=== PATIENT | female | born 1950 | race Caucasian/White ===

== ENCOUNTER 2016-12-11 17:37 | Emergency (ER) | payer MEDICARE ==
[2012-10-24 10:48] VITALS: BMI 25.4
[2016-12-11 18:48] LABS: BASOPHILS 0.3 % (0-2); EOSINOPHILS 1.3 % (0-7); HEMATOCRIT 48.1 % (36.0-48.0); HEMOGLOBIN 15.9 g/dL (12-16); IMMATURE GRANULOCYTES 0.3 % (0-5); LYMPHOCYTES 27.8 % (15-50); MCH 32.4 pg (26.0-34.0); MCHC 33.1 g/dL (31.0-37.0); MCV 98.2 fL (80.0-100.0); MEAN PLATELET VOLUME 10.4 fL (7.4-10.4); NEUTROPHILS 64.3 % (40-80); PLATELET COUNT 189 10x3/uL (130-400); RDW 13.5 % (11.5-14.5); WBC 7.1 10x3/uL (4.8-10.8)
[2016-12-11 19:05] LABS: ALBUMIN 3.9 g/dL (3.4-5.0); ANION GAP 12.2 mmol/L (8-16); BILIRUBIN - TOTAL 0.48 mg/dL (0.2-1.3); CALCIUM 9.3 mg/dL (8.5-10.1); CARBON DIOXIDE 31.2 mmol/L (21.0-32.0); CREATININE - SERUM 1.1 mg/dL (0.6-1.3); POTASSIUM - SERUM 4.4 mmol/L (3.5-5.1); PROTEIN - SERUM 7.5 g/dL (6.4-8.2)
[2016-12-11 19:16] LABS: APPEARANCE CLEAR (CLEAR); BILIRUBIN NEGATIVE (NEGATIVE); COLOR DK YELLOW (YELLOW); GLUCOSE NEGATIVE (NEGATIVE); KETONE NEGATIVE (NEGATIVE); LEUKOCYTE ESTERASE NEGATIVE (NEGATIVE); NITRITE NEGATIVE (NEGATIVE); PROTEIN NEGATIVE (NEGATIVE); SPECIFIC GRAVITY 1.005 (1.005-1.020); UROBILINOGEN NORMAL (NORMAL)
== END 2016-12-11 20:30 | disposition home or self-care (01) ==
LOC: D.ER 17:37
PROVIDERS: Emergency Medicine
DX: K29.00 Acute gastritis without bleeding (principal); K21.9 Gastro-esophageal reflux disease without esophagitis; K59.00 Constipation, unspecified; R63.0 Anorexia; R51 Headache; R11.2 Nausea with vomiting, unspecified

== ENCOUNTER → 2017-02-01 12:57 | Outpatient (CLI) | payer MEDICARE ==
[2012-10-24 10:48] VITALS: BMI 25.4
== END | disposition home or self-care (01) ==
LOC: D.CT 12:57 → D.MRI 13:30
DX: R10.9 Unspecified abdominal pain (principal)

== ENCOUNTER 2017-02-23 19:30 | Emergency (ER) | payer MEDICARE ==
[2012-10-24 10:48] VITALS: BMI 25.4
[2017-02-23 20:38] LABS: APPEARANCE CLEAR (CLEAR); BILIRUBIN NEGATIVE (NEGATIVE); COLOR STRAW (YELLOW); GLUCOSE NEGATIVE (NEGATIVE); KETONE NEGATIVE (NEGATIVE); NITRITE NEGATIVE (NEGATIVE); PROTEIN NEGATIVE (NEGATIVE); UROBILINOGEN NORMAL (NORMAL)
[2017-02-23 20:41] LABS: BACTERIA FEW /hpf (NONE SEEN)
[2017-02-23 20:43] LABS: UDS - AMPHET NEGATIVE QUAL (NEGATIVE); UDS - BARB NEGATIVE QUAL (NEGATIVE); UDS - BENZO POSITIVE QUAL (NEGATIVE); UDS - COCAINE NEGATIVE QUAL (NEGATIVE); UDS - OPIATE NEGATIVE QUAL (NEGATIVE); UDS - PCP NEGATIVE QUAL (NEGATIVE); UDS - THC NEGATIVE QUAL (NEGATIVE)
[2017-02-23 20:45] LABS: BASOPHILS 0.3 % (0-2); EOSINOPHILS 1.6 % (0-7); HEMATOCRIT 45.4 % (36.0-48.0); HEMOGLOBIN 15.2 g/dL (12-16); IMMATURE GRANULOCYTES 0.1 % (0-5); MCH 32.3 pg (26.0-34.0); MCHC 33.5 g/dL (31.0-37.0); MCV 96.6 fL (80.0-100.0); MEAN PLATELET VOLUME 10.2 fL (7.4-10.4); MONOCYTES 7.3 % (2-11); NEUTROPHILS 69.7 % (40-80); PLATELET COUNT 201 10x3/uL (130-400); WBC 7.6 10x3/uL (4.8-10.8)
[2017-02-23 21:17] LABS: ALBUMIN 4.3 g/dL (3.4-5.0); ANION GAP 12.5 mmol/L (8-16); BILIRUBIN - TOTAL 0.5 mg/dL (0.2-1.3); CALCIUM 9.6 mg/dL (8.5-10.1); CARBON DIOXIDE 28.4 mmol/L (21.0-32.0); POTASSIUM - SERUM 3.9 mmol/L (3.5-5.1); PROTEIN - SERUM 7.6 g/dL (6.4-8.2)
== END 2017-02-23 22:15 | disposition home or self-care (01) ==
LOC: D.ER 19:30
PROVIDERS: Physician Assistant
DX: R42 Dizziness and giddiness (principal); H93.13 Tinnitus, bilateral; Z86.59 Personal history of other mental and behavioral disorders; F17.200 Nicotine dependence, unspecified, uncomplicated

== ENCOUNTER 2017-02-25 11:58 | Emergency (ER) | payer MEDICARE ==
[2012-10-24 10:48] VITALS: BMI 25.4
== END 2017-02-25 12:46 | disposition home or self-care (01) ==
LOC: D.ER 11:58
DX: F41.9 Anxiety disorder, unspecified (principal); G47.00 Insomnia, unspecified; Z86.59 Personal history of other mental and behavioral disorders; Z91.14 Patient's other noncompliance with medication regimen; K21.9 Gastro-esophageal reflux disease without esophagitis

== ENCOUNTER 2017-05-29 18:14 | Emergency (ER) | payer MEDICARE ==
[2012-10-24 10:48] VITALS: BMI 25.4
[2017-05-29 19:14] LABS: BASOPHILS 0.4 % (0-2); EOSINOPHILS 0.6 % (0-7); HEMATOCRIT 45.7 % (36.0-48.0); HEMOGLOBIN 15.3 g/dL (12-16); IMMATURE GRANULOCYTES 0.1 % (0-5); LYMPHOCYTES 35.9 % (15-50); MCH 32.8 pg (26.0-34.0); MCHC 33.5 g/dL (31.0-37.0); MCV 98.1 fL (80.0-100.0); MEAN PLATELET VOLUME 9.9 fL (7.4-10.4); MONOCYTES 7.6 % (2-11); NEUTROPHILS 55.4 % (40-80); PLATELET COUNT 218 10x3/uL (130-400); RBC 4.66 10x6/uL (4.00-5.40); RDW 12.9 % (11.5-14.5); WBC 6.8 10x3/uL (4.8-10.8)
[2017-05-29 19:36] LABS: ALBUMIN 3.9 g/dL (3.4-5.0); ANION GAP 14.9 mmol/L (8-16); BILIRUBIN - TOTAL 0.29 mg/dL (0.2-1.3); CALCIUM 9.4 mg/dL (8.5-10.1); CARBON DIOXIDE 27.6 mmol/L (21.0-32.0); CREATININE - SERUM 1.1 mg/dL (0.6-1.3); POTASSIUM - SERUM 3.5 mmol/L (3.5-5.1); PROTEIN - SERUM 7.2 g/dL (6.4-8.2)
[2017-05-29 20:42] LABS: APPEARANCE CLEAR (CLEAR); BILIRUBIN NEGATIVE (NEGATIVE); COLOR YELLOW (YELLOW); GLUCOSE NEGATIVE (NEGATIVE); KETONE NEGATIVE (NEGATIVE); NITRITE NEGATIVE (NEGATIVE); PROTEIN NEGATIVE (NEGATIVE); UROBILINOGEN NORMAL (NORMAL)
== END 2017-05-29 22:10 | disposition home or self-care (01) ==
LOC: D.ER 18:14
PROVIDERS: Family Medicine
DX: K21.9 Gastro-esophageal reflux disease without esophagitis (principal); R11.10 Vomiting, unspecified

== ENCOUNTER 2017-07-16 09:43 | Emergency (ER) | payer OTHER, MEDICAID ==
[2012-10-24 10:48] VITALS: BMI 25.4
== END 2017-07-16 12:22 | disposition home or self-care (01) ==
LOC: D.ER 09:43
DX: J20.9 Acute bronchitis, unspecified (principal); J06.9 Acute upper respiratory infection, unspecified; K21.9 Gastro-esophageal reflux disease without esophagitis

== ENCOUNTER → 2017-08-28 17:15 | Outpatient (CLI) | payer OTHER, MEDICAID ==
[2012-10-24 10:48] VITALS: BMI 25.4
== END | disposition home or self-care (01) ==
LOC: D.MAMMO 11:30
DX: Z12.31 Encounter for screening mammogram for malignant neoplasm of breast (principal)

== ENCOUNTER → 2017-09-28 16:49 | Outpatient (CLI) | payer OTHER, MEDICAID ==
[2012-10-24 10:48] VITALS: BMI 25.4
== END | disposition home or self-care (01) ==
LOC: D.MAMMO 09-27 10:30 → D.US 09-27 11:30 → D.MAMMO 10:30
DX: R92.8 Other abnormal and inconclusive findings on diagnostic imaging of breast (principal)

== ENCOUNTER 2017-11-09 15:16 | Emergency (ER) | payer OTHER, MEDICAID ==
[~2017-11-09] VITALS: Ht 163.8 cm; Wt 71.8 kg
[2017-11-09 15:21] VITALS: Ht 163.8 cm; Wt 71.8 kg
[2017-11-09] MEDS ORDERED: XANAX2 MG PO (15:23)
[2017-11-09] MEDS ORDERED: HALCION0.25 MG PO (15:23)
[2017-11-09] MEDS ORDERED: LEXAPRO10 MG PO (15:23)
[2017-11-09] MEDS ORDERED: REMERON30 MG PO (15:24)
[2017-11-09] MEDS ORDERED: LEVOXYL75 MCG PO (15:24)
[2017-11-09 15:49] LABS: APPEARANCE CLEAR (CLEAR); COLOR STRAW (YELLOW)
[2017-11-09 15:50] LABS: BILIRUBIN NEGATIVE (NEGATIVE); GLUCOSE NEGATIVE (NEGATIVE); KETONE NEGATIVE (NEGATIVE); NITRITE NEGATIVE (NEGATIVE); PROTEIN NEGATIVE (NEGATIVE); UROBILINOGEN NORMAL (NORMAL)
[2017-11-09 15:51] LABS: BACTERIA FEW /hpf (NONE SEEN); EPITHELIAL CELLS 0-5 /hpf (0-5); WHITE CELLS - URINE 0-5 /hpf (0-5)
[2017-11-09 16:00] LABS: UDS - AMPHET NEGATIVE QUAL (NEGATIVE); UDS - BARB NEGATIVE QUAL (NEGATIVE); UDS - BENZO POSITIVE QUAL (NEGATIVE); UDS - COCAINE NEGATIVE QUAL (NEGATIVE); UDS - OPIATE NEGATIVE QUAL (NEGATIVE); UDS - PCP NEGATIVE QUAL (NEGATIVE); UDS - THC NEGATIVE QUAL (NEGATIVE)
[2017-11-09 16:29] LABS: BASOPHILS 0.4 % (0-2); EOSINOPHILS 1.7 % (0-7); HEMATOCRIT 48.5 % (36.0-48.0); IMMATURE GRANULOCYTES 0.3 % (0-5); LYMPHOCYTES 43.8 % (15-50); MCH 32.7 pg (26.0-34.0); MCV 99.2 fL (80.0-100.0); MEAN PLATELET VOLUME 10.4 fL (7.4-10.4); MONOCYTES 4.6 % (2-11); NEUTROPHILS 49.2 % (40-80); PLATELET COUNT 208 10x3/uL (130-400); RBC 4.89 10x6/uL (4.00-5.40); RDW 13.8 % (11.5-14.5); WBC 6.9 10x3/uL (4.8-10.8)
[2017-11-09 16:45] LABS: ALBUMIN 3.9 g/dL (3.4-5.0); BILIRUBIN - TOTAL 0.4 mg/dL (0.2-1.3); CALCIUM 9.7 mg/dL (8.5-10.1); CARBON DIOXIDE 31.3 mmol/L (21.0-32.0); POTASSIUM - SERUM 4.3 mmol/L (3.5-5.1); PROTEIN - SERUM 7.5 g/dL (6.4-8.2)
[2017-11-09 16:55] LABS: THYROID STIMULATING HORMONE 1.66 uIU/mL (0.36-3.74)
[2017-11-09 20:38] VITALS: BP 152/97
== END 2017-11-09 20:38 | disposition home or self-care (01) ==
LOC: D.ER 15:16
PROVIDERS: Family Medicine
DX: F32.9 Major depressive disorder, single episode, unspecified (principal); Z86.59 Personal history of other mental and behavioral disorders

== ENCOUNTER 2018-08-03 16:14 | Emergency (ER) | payer OTHER ==
[~2018-08-03] VITALS: Ht 163.8 cm; Wt 70.5 kg
[~2018-08-03 16:14] MED LIST: HALCION0.25 MG PO; LEVOXYL75 MCG PO; LEXAPRO10 MG PO; REMERON30 MG PO; XANAX2 MG PO
[2018-08-03 16:15] VITALS: Ht 163.8 cm; Wt 70.5 kg
[2018-08-03] MEDS ORDERED: BUPROPION XL150 MG PO (16:17)
[2018-08-03] MEDS ORDERED: VISTARIL50 MG PO (16:17)
[2018-08-03] MEDS ORDERED: KLONOPIN0.5 MG PO (16:18)
[2018-08-03] MEDS ORDERED: SYNTHROID50 MCG PO (16:18)
[2018-08-03] MEDS ORDERED: BUSPAR10 MG PO (16:18)
[2018-08-03] MEDS ORDERED: [UNRECOGNIZED DRUG - REMARK] (16:19)
[2018-08-03] MEDS ORDERED: REMERON15 MG PO (16:19)
[2018-08-03 17:53] LABS: BASOPHILS 0.1 % (0-2); EOSINOPHILS 0.1 % (0-7); HEMATOCRIT 40.3 % (36.0-48.0); HEMOGLOBIN 13.5 g/dL (12-16); IMMATURE GRANULOCYTES 0.3 % (0-5); LYMPHOCYTES 7.3 % (15-50); MCHC 33.5 g/dL (31.0-37.0); MCV 95.5 fL (80.0-100.0); MONOCYTES 4.5 % (2-11); NEUTROPHILS 87.7 % (40-80); PLATELET COUNT 222 10x3/uL (130-400); RBC 4.22 10x6/uL (4.00-5.40); RDW 13.2 % (11.5-14.5); WBC 11.1 10x3/uL (4.8-10.8)
[2018-08-03 17:58] LABS: APPEARANCE CLEAR (CLEAR); BILIRUBIN NEGATIVE (NEGATIVE); COLOR YELLOW (YELLOW); GLUCOSE NEGATIVE (NEGATIVE); KETONE NEGATIVE (NEGATIVE); NITRITE NEGATIVE (NEGATIVE); PROTEIN NEGATIVE (NEGATIVE); UDS - AMPHET NEGATIVE QUAL (NEGATIVE); UDS - BARB NEGATIVE QUAL (NEGATIVE); UDS - BENZO NEGATIVE QUAL (NEGATIVE); UDS - COCAINE NEGATIVE QUAL (NEGATIVE); UDS - OPIATE NEGATIVE QUAL (NEGATIVE); UDS - PCP NEGATIVE QUAL (NEGATIVE); UDS - THC NEGATIVE QUAL (NEGATIVE); UROBILINOGEN NORMAL (NORMAL)
[2018-08-03 18:06] LABS: APTT 20.3 SECONDS (22.8-39.4); INR 1.06 (0.85-1.17); PROTIME 13.3 SECONDS (11.6-15.0)
[2018-08-03 18:12] LABS: ALBUMIN 3.4 g/dL (3.4-5.0); ALKALINE PHOSPHATASE 153 U/L (46-116); ALT (SGPT) 39 U/L (10-68); BILIRUBIN - TOTAL 0.38 mg/dL (0.2-1.3); CALC OSMOLALITY 272 mosm/kg (275-300); CALCIUM 8.6 mg/dL (8.5-10.1); CARBON DIOXIDE 27.7 mmol/L (21.0-32.0); CHLORIDE - SERUM 100 mmol/L (98-107); GLUCOSE 130 mg/dL (74-106); POTASSIUM - SERUM 3.9 mmol/L (3.5-5.1); PROTEIN - SERUM 6.8 g/dL (6.4-8.2); SODIUM 136 mmol/L (136-145); UREA NITROGEN 9 mg/dL (7-18); eGFR NON AFRICAN AMERICAN 59 mL/min (90-120)
[2018-08-03 18:25] LABS: ACETAMINOPHEN 0.1 ug/mL (10.0-30.0); CKMB 0.6 U/L (0.0-3.6); CREATINE KINASE 34 UL (21-215); MAGNESIUM - SERUM 1.9 mg/dL (1.8-2.4); THYROID STIMULATING HORMONE 2.84 uIU/mL (0.36-3.74)
[2018-08-03 18:35] LABS: TROPONIN-I < 0.017 ng/mL (0.000-0.060)
[2018-08-03] MEDS ORDERED: PRISTIQ50 MG PO (20:34)
[2018-08-03] MEDS ORDERED: KEPPRA500 MG (20:35)
[2018-08-03 22:33] VITALS: BP 171/67
== END 2018-08-03 22:33 | disposition other institution (70) ==
LOC: D.ER 16:14
PROVIDERS: Family Medicine
DX: R41.82 Altered mental status, unspecified (principal)

== ENCOUNTER 2019-04-17 22:18 | Inpatient (IN) | payer OTHER ==
[~2019-04-17] VITALS: Ht 163.8 cm; Wt 69.1 kg
[2019-04-17 22:18] VITALS: BP 150/71
[~2019-04-17 22:18] MED LIST changes: +BUPROPION XL150 MG PO; +BUSPAR10 MG PO; +KEPPRA500 MG; +KLONOPIN0.5 MG PO; +PRISTIQ50 MG PO; +REMERON15 MG PO; +SYNTHROID50 MCG PO; +VISTARIL50 MG PO; +[UNRECOGNIZED DRUG - REMARK]
[2019-04-17 22:51] VITALS: BP 114/66
[2019-04-17 23:00] VITALS: BP 90/54
[2019-04-17 23:08] LABS: UDS - AMPHET NEGATIVE QUAL (NEGATIVE); UDS - BARB NEGATIVE QUAL (NEGATIVE); UDS - BENZO NEGATIVE QUAL (NEGATIVE); UDS - COCAINE NEGATIVE QUAL (NEGATIVE); UDS - OPIATE NEGATIVE QUAL (NEGATIVE); UDS - PCP NEGATIVE QUAL (NEGATIVE); UDS - THC NEGATIVE QUAL (NEGATIVE)
[2019-04-17 23:27] LABS: BASOPHILS 0.1 % (0-2); HEMATOCRIT 38.6 % (36.0-48.0); HEMOGLOBIN 12.4 g/dL (12-16); LYMPHOCYTES 43.5 % (15-50); MCHC 32.1 g/dL (31.0-37.0); MCV 99.7 fL (80.0-100.0); MEAN PLATELET VOLUME 9.6 fL (7.4-10.4); MONOCYTES 4.6 % (2-11); NEUTROPHILS 48.8 % (40-80); PLATELET COUNT 208 10x3/uL (130-400); RBC 3.87 10x6/uL (4.00-5.40); RDW 13.8 % (11.5-14.5)
[2019-04-17 23:35] VITALS: BP 101/53
[2019-04-17 23:36] LABS: APTT 27.8 SECONDS (22.8-39.4); INR 1.11 (0.85-1.17); PROTIME 13.8 SECONDS (11.6-15.0)
[2019-04-17 23:52] LABS: ALBUMIN 3.3 g/dL (3.4-5.0); ALKALINE PHOSPHATASE 113 U/L (46-116); ALT (SGPT) 76 U/L (10-68); BILIRUBIN - TOTAL 0.28 mg/dL (0.2-1.3); CALCIUM 8.3 mg/dL (8.5-10.1); CARBON DIOXIDE 22.1 mmol/L (21.0-32.0); CHLORIDE - SERUM 103 mmol/L (98-107); CKMB 1.4 U/L (0.0-3.6); CREATINE KINASE 243 UL (21-215); CREATININE - SERUM 0.9 mg/dL (0.6-1.3); GLUCOSE 148 mg/dL (74-106); MAGNESIUM - SERUM 2.1 mg/dL (1.8-2.4); PROTEIN - SERUM 6.4 g/dL (6.4-8.2); SODIUM 141 mmol/L (136-145); THYROID STIMULATING HORMONE 6.21 uIU/mL (0.36-3.74); eGFR NON AFRICAN AMERICAN 66 mL/min (90-120)
[2019-04-17 23:55] VITALS: BP 111/60
[2019-04-17 23:57] LABS: CALC OSMOLALITY 279 mosm/kg (275-300); TROPONIN-I < 0.017 ng/mL (0.000-0.060); UREA NITROGEN 0 mg/dL (7-18)
[2019-04-18] VITALS (26 sets, daily range): BP systolic 94–153; BP diastolic 49–89; Ht 163.8 cm; Wt 69.1 kg
[2019-04-18] MEDS ORDERED: KEPPRA750 MG (01:02)
--- NOTE | 2019-04-18 01:43 | NUR ---
REPORT RECEIVED FROM ER. REPIRATORY SETUP VENT AND RETURNED FROM ER WITH PT. PT ON PORTABLE VENT AND CHANGED TO BEDSIDE VENT. A/C RATE 14, TV 450, O2 40%, PEEP 5. RECEIVING NS 75 AND DIPROVAN. PT OPENS EYES TO VERBAL STIMULI AND QUICKLY CLOSES EYES. VSS. NO S/S OF DISTRESS. RESTRAINTS TO BILATERAL WRIST. WILL CONTINUE TO OBSERVE.
--- NOTE | 2019-04-18 03:30 | NUR ---
PT CONTINUES VENT WITH SEDATION. OPENS EYES TO VERBAL STIMULI. NO S/S OF DISTRESS. CALL LIGHT IN REACH. WILL CONTINUE TO OBSERVE.
[2019-04-18 05:49] LABS: BASOPHILS 0.1 % (0-2); EOSINOPHILS 0.2 % (0-7); HEMATOCRIT 41.8 % (36.0-48.0); HEMOGLOBIN 13.6 g/dL (12-16); IMMATURE GRANULOCYTES 0.3 % (0-5); LYMPHOCYTES 6.7 % (15-50); MCH 32.2 pg (26.0-34.0); MCHC 32.5 g/dL (31.0-37.0); MCV 98.8 fL (80.0-100.0); MEAN PLATELET VOLUME 9.5 fL (7.4-10.4); NEUTROPHILS 85.7 % (40-80); PLATELET COUNT 208 10x3/uL (130-400); RBC 4.23 10x6/uL (4.00-5.40); RDW 13.8 % (11.5-14.5)
[2019-04-18 06:05] LABS: CALCIUM 8.9 mg/dL (8.5-10.1); CREATININE - SERUM 0.9 mg/dL (0.6-1.3)
[2019-04-18 06:06] LABS: ANION GAP 14.6 mmol/L (8-16); CARBON DIOXIDE 28.5 mmol/L (21.0-32.0); POTASSIUM - SERUM 4.1 mmol/L (3.5-5.1)
--- NOTE | 2019-04-18 06:29 | NUR ---
PT CONTINUES VENT WITH SEDATION. NO S/S OF DISTRESS. WILL CONTINUE TO OBSERVE.
--- NOTE | 2019-04-18 07:00 | NUR ---
BEDSIDE REPORT RECEIVED. SHIFT ASSESSMENT COMPLETED PER FLOWSHEET, SEE FLOWSHEET FOR INFORMATION. VSS. PT DENIES ANY ACUTE NEEDS OR DISTRESS AT THIS TIME. WILL CONT TO MONITOR.
--- NOTE | 2019-04-18 09:00 | NUR ---
AT BEDSIDE. NEW ORDERS RECEIVED. PT DAUGHTER AT BEDSIDE AT REQUSTED THAT PT HAVE COLD RAG OVER HER EYES STATING "IT WILL MAKE HER FEEL BETTER". COLD RAG PUT OVER PT EYES AND PT FELL ASLEEP. VSS. WILL CONT TO TONI.
--- NOTE | 2019-04-18 09:50 | NUR ---
PT EXTUBATED PER RT. PLACED NC ON PT AT 4L. WILL CONT TO MONITOR.
--- NOTE | 2019-04-18 11:00 | NUR ---
REASSESSMENT COMPLETED PER FLOWSHEET, SEE FLOWSHEET FOR INFORMATION. PT C/O OF BEING HUNGRY AND WANTING FOOD, SPOKE WITH PT ABOUT DANGERS OF EATING AFTER EXTUBATION WITHOUT PROPER HELP. WILL CONT TO MONITOR.
--- NOTE | 2019-04-18 13:00 | NUR ---
PT FAMILY AT BEDSIDE. NO ACUTE NEEDS OR DISTRESS NOTED AT THIS TIME.
--- NOTE | 2019-04-18 15:00 | NUR ---
REASSESSMENT COMPLETED PER FLOWSHEET, SEE FLOWSHEET FOR INFORMATION. PT DENIES ANY NEEDS BESIDES "I WANT TO EAT" ONCE MORE TOLD PT ABOUT INCREASE RISK OF ASPIRATION WIHTOUT PROPER SWALLOW EVALUATION. PT VERBALIZED UNDERSTANDING. VSS. WILL CONT TO MONITOR.
--- NOTE | 2019-04-18 17:00 | NUR ---
PT FAMILY AT BEDSIDE, NURSE SWALLOW STUDY COMPLETED. PT TOLERATED ALL TEXTURES OF FOOD, NO OUTWARD SIGNS OF CHOKING. WILL CONT TO MONITOR.
--- NOTE | 2019-04-18 19:30 | NUR ---
PT A/O X4, LUNGS CLEAR, O2 @ 3L VIA N/C, LEFT SHOULDER I/O IV CATH REMOVED BY CHARGE NURSE, LEFT BREAST IV INTACT WITH NS @ 75 CC/HR, LEFT AND RIGHT HAND PIV'S INTACT AND CESAR WEIR PATENT TO BSD, VITALS STABLE, WILL CONT TO MONITOR
--- NOTE | 2019-04-18 21:30 | NUR ---
PT AWAKE, TAKES PO MEDS WITHOUT DIFFICULTY, NO C/O
--- NOTE | 2019-04-18 23:48 | NUR ---
PT SLEEPING WITH NO DISTRESS, VITALS STABLE, WILL CONT TO MONITOR
[2019-04-19] VITALS (10 sets, daily range): BP systolic 99–129; BP diastolic 40–94
--- NOTE | 2019-04-19 01:44 | NUR ---
PT REMAINS ASLEEP WITH NO DISTRESS NOTED
--- NOTE | 2019-04-19 03:00 | NUR ---
PT RESTING QUIETLY WITH EYES CLOSED, VITALS STABLE
[2019-04-19 03:40] LABS: BASOPHILS 0 % (0-2); EOSINOPHILS 0.1 % (0-7); HEMATOCRIT 37.7 % (36.0-48.0); HEMOGLOBIN 12.3 g/dL (12-16); IMMATURE GRANULOCYTES 0.3 % (0-5); LYMPHOCYTES 9.5 % (15-50); MCH 32.1 pg (26.0-34.0); MCHC 32.6 g/dL (31.0-37.0); MCV 98.4 fL (80.0-100.0); MEAN PLATELET VOLUME 9.6 fL (7.4-10.4); MONOCYTES 5.8 % (2-11); NEUTROPHILS 84.3 % (40-80); PLATELET COUNT 192 10x3/uL (130-400); RBC 3.83 10x6/uL (4.00-5.40); RDW 14.3 % (11.5-14.5); WBC 10.7 10x3/uL (4.8-10.8)
[2019-04-19 03:53] LABS: CALC OSMOLALITY 276 mosm/kg (275-300); CALCIUM 8.4 mg/dL (8.5-10.1); CARBON DIOXIDE 28.2 mmol/L (21.0-32.0); CHLORIDE - SERUM 103 mmol/L (98-107); CREATININE - SERUM 0.8 mg/dL (0.6-1.3); GLUCOSE 132 mg/dL (74-106); POTASSIUM - SERUM 3.8 mmol/L (3.5-5.1); SODIUM 138 mmol/L (136-145); UREA NITROGEN 10 mg/dL (7-18); eGFR NON AFRICAN AMERICAN 76 mL/min (90-120)
--- NOTE | 2019-04-19 05:23 | NUR ---
PT AWAKE, XRAY IN ROOM FOR AM CHEST XRAY, NO DISTRESS
--- NOTE | 2019-04-19 07:33 | NUR ---
report received. shift assessment complete. pt resting at this time. vss.
[2019-04-19] MEDS ORDERED: AUGMENTIN 875-11 TAB PO (08:58)
[2019-04-19] MEDS ORDERED: MUCINEX600 MG PO (08:58)
--- NOTE | 2019-04-19 09:01 | NUR ---
DR SOLIZ HAS BEEN BY TO SEE PATIENT. CAN SEND HOME WITH ANTIBIOTICS IF OK WITH PULMONARY. DR LUBIN CAME THROUGH AND SAW PATIENT. IS OK FOR HER TO GO HOME WITH ANTIBIOTICS.
--- NOTE | 2019-04-19 09:50 | NUR ---
TWO PRESCRIPTIONS CALLED IN TO [facility] yo[facility]. SPOKE WITH AIDEE. AUGMENTIN 875-125 MG TAB PO EVERY 12 HOURS QTY 20 WITH 0 REFILLS GUAIFENESIN 600 MG TAB PO 2X DAILY QTY 20 WITH 0 REFILLS
--- NOTE | 2019-04-19 10:25 | MORECARE ---
CASE MANAGEMENT DISCHARGE SUMMARY PATIENT: PETE GAUTHIER BLAYNE UNIT: [id number] ADM DATE: 04/17/19 AGE: 68 : 52 SEX: F ROOM/BED: D.2310 AUTHOR: AMARA JACQUES PHYSICIAN: REFERRING PHYSICIAN: LOBITO SOLIZ MD DATE OF SERVICE: 04/19/19 Discharge Plan Patient Name: PETE GAUTHIER Facility: [facility]:[place] : 1950 Planned Disposition: Anticipated Discharge Date: Discharge Date: Expected LOS: Initial Reviewer: [email or web address] Initial Review Date: 04/19/2019 Generated: 04/19/19 11:25 am Comments DCP- Discharge Planning Updated by [email or web address]: Manuela Figueroa on 04/19/19 9:[address] Patient Name: PETE GAUTHIER Admission Status: ER Accout number: [id number] Admission Date: 04-17-2019 : 1950 Admission Diagnosis: Attending: LOBITO SOLIZ Current LOS: 2 Anticipated DC Date: Planned Disposition: Primary Insurance: [employer] Discharge Planning Comments: CM MET WITH PATIENT TO DISCUSS DC PLANNING/NEEDS AFTER OBTAINING VERBAL CONSENT. PLANS TO DC TO HOME. DENIES NEEDS FOR EQUIPMENT, HOME HEALTH OR REHAB. CM TO FOLLOW AND ASSIST NEEDED. Fuel Cell Designer: Manuela Figueroa DCPIA - Discharge Planning Initial Assessment Updated by [email or web address]: Manuela Figueroa on 04/19/19 10:22 am * Is the patient Alert and Oriented? Yes * PCP AIME * Pharmacy [facility] * Preadmission Environment Home with Family * ADLs Independent * Equipment None * List name and contact numbers for known caregivers / representatives who currently or will assist patient after discharge: BLAYNE HSETER, MOM, * Community resources currently utilized None * Additional services required to return to the preadmission environment? No * Can the patient safely return to the preadmission environment? Yes * Has this patient been hospitalized within the prior 30 days at any hospital? No Patient Name: PETE GAUTHIER Page 44892 at 1025 All edits/amendments must be made on the electronic document DICTATION DATE: 04/19/19 1025 STATEMENT SERVICES REPRESENTATIVE: BRYANT 04/19/19 1025 RPT#: [id number] DC DATE: STATUS: ADM IN [facility] [address] [place] [address] END OF REPORT
--- NOTE | 2019-04-19 11:20 | NUR ---
4 PIV REMOVED, TIP INTACT. NO BLEEDING. GUERRERO CATHETER REMOVED, TIP INTACT.
--- NOTE | 2019-04-19 11:44 | NUR ---
DISCHARGE TEACHING PROVIDED TO PT AND DAUGHTER. UNDERSTAND PLAND FOR FOLLOW UP.
--- NOTE | 2019-04-19 12:54 | MORECARE ---
CASE MANAGEMENT DISCHARGE SUMMARY PATIENT: PETE GAUTHIER BLAYNE UNIT: [id number] ADM DATE: 04/17/19 AGE: 68 : 52 SEX: F ROOM/BED: D.2310 AUTHOR: AMARA JACQUES PHYSICIAN: REFERRING PHYSICIAN: LOBITO SOLIZ MD DATE OF SERVICE: 04/19/19 Discharge Plan Patient Name: PETE GAUTHIER Facility: [facility]:[place] : 1950 Planned Disposition: Home Anticipated Discharge Date: 04/19/19 Discharge Date: 04/19/2019 Expected LOS: 2 Initial Reviewer: [email or web address] Initial Review Date: 04/19/2019 Generated: 04/19/19 1:54 pm Comments DCP- Discharge Planning Updated by [email or web address]: Manuela Figueroa on 04/19/19 9:[address] Patient Name: PETE GAUTHIER Admission Status: ER Accout number: [id number] Admission Date: 04-17-2019 : 1950 Admission Diagnosis: Attending: LOBITO SOLIZ Current LOS: 2 Anticipated DC Date: Planned Disposition: Primary Insurance[facility] [employer] [facility] Discharge Planning Comments: CM MET WITH PATIENT TO DISCUSS DC PLANNING/NEEDS AFTER OBTAINING VERBAL CONSENT. PLANS TO DC TO HOME. DENIES NEEDS FOR EQUIPMENT, HOME HEALTH OR REHAB. CM TO FOLLOW AND ASSIST NEEDED. Quality Tester: Manuela Figueroa DCPIA - Discharge Planning Initial Assessment Updated by [email or web address]: Manuela Figueroa on 04/19/19 10:22 am * Is the patient Alert and Oriented? Yes * PCP AIME * Pharmacy [facility] * Preadmission Environment Home with Family * ADLs Independent * Equipment None * List name and contact numbers for known caregivers / representatives who currently or will assist patient after discharge: BLAYNE HESTER, MOM, * Community resources currently utilized None * Additional services required to return to the preadmission environment? No * Can the patient safely return to the preadmission environment? Yes * Has this patient been hospitalized within the prior 30 days at any hospital? No Last DP export: 04/19/19 9:25 Patient Name: PETE GAUTHIER Page 42210 at 1254 All edits/amendments must be made on the electronic document DICTATION DATE: 04/19/19 1254 ELECTRONIC DRAFTER: BRYANT 04/19/19 1254 RPT#: [id number] DC DATE:04/19/19 STATUS: DIS IN [facility] [address] [place] [address] END OF REPORT
--- NOTE | 2019-04-19 15:06 | MORECARE ---
CASE MANAGEMENT DISCHARGE SUMMARY PATIENT: PETE GAUTHIER BLAYNE UNIT: [id number] ADM DATE: 04/17/19 AGE: 68 : 52 SEX: F ROOM/BED: D.2310 AUTHOR: AMARA JACQUES PHYSICIAN: REFERRING PHYSICIAN: LOBITO SOLIZ MD DATE OF SERVICE: 04/19/19 Discharge Plan Patient Name: PETE GAUTHIER Facility: [facility]:[place] : 1950 Planned Disposition: Home Anticipated Discharge Date: 04/19/19 Discharge Date: 04/19/2019 Expected LOS: 2 Initial Reviewer: [email or web address] Initial Review Date: 04/19/2019 Generated: 04/19/19 4:06 pm Comments DCP- Discharge Planning Updated by [email or web address]: Manuela Figueroa on 04/19/19 9:[address] Patient Name: PETE GAUTHIER Admission Status: ER Accout number: [id number] Admission Date: 04-17-2019 : 1950 Admission Diagnosis: Attending: LOBITO SOLIZ Current LOS: 2 Anticipated DC Date: Planned Disposition: [facility] Discharge Planning Comments: CM MET WITH PATIENT TO DISCUSS DC PLANNING/NEEDS AFTER OBTAINING VERBAL CONSENT. PLANS TO DC TO HOME. DENIES NEEDS FOR EQUIPMENT, HOME HEALTH OR REHAB. CM TO FOLLOW AND ASSIST NEEDED. Electronic Funds Transfer Coordinator: Manuela Figueroa DCPIA - Discharge Planning Initial Assessment Updated by [email or web address]: Manuela Figueroa on 04/19/19 10:22 am * Is the patient Alert and Oriented? Yes * PCP AIME * Pharmacy [facility] * Preadmission Environment Home with Family * ADLs Independent * Equipment None * List name and contact numbers for known caregivers / representatives who currently or will assist patient after discharge: BLAYNE HESTER, MOM, * Community resources currently utilized None * Additional services required to return to the preadmission environment? No * Can the patient safely return to the preadmission environment? Yes * Has this patient been hospitalized within the prior 30 days at any hospital? No Last DP export: 04/19/19 11:54 Patient Name: PETE GAUTHIER Page 41956 at 1506 All edits/amendments must be made on the electronic document DICTATION DATE: 04/19/19 150 STROKE BELT SANDER OPERATOR: BRYANT 04/19/19 1506 RPT#: [id number] DC DATE:04/19/19 STATUS: DIS IN [facility] [address] [place] [address] END OF REPORT
== END 2019-04-19 11:47 | disposition home or self-care (01) | DRG 208 ==
LOC: D.ER 22:18 → D.ICU 23:35
PROVIDERS: Emergency Medicine; Family Medicine; ADMIT Family Medicine; ATTEND Family Medicine
PROC: 5A1945Z Respiratory Ventilation, 24-96 Consecutive Hours (ICD-10-PCS; principal; 2019-04-17)
DX: J96.00 Acute respiratory failure, unspecified whether with hypoxia or hypercapnia (principal); R40.2212 Coma scale, best verbal response, none, at arrival to emergency department; T18.120A Food in esophagus causing compression of trachea, initial encounter; X58.XXXA Exposure to other specified factors, initial encounter; E87.6 Hypokalemia; R40.2362 Coma scale, best motor response, obeys commands, at arrival to emergency department; R40.2132 Coma scale, eyes open, to sound, at arrival to emergency department; R23.0 Cyanosis

== ENCOUNTER 2019-10-08 12:13 | Inpatient (IN) | payer MEDICARE ==
[2019-10-08] VITALS (8 sets, daily range): BP systolic 100–139; BP diastolic 32–99
[~2019-10-08] VITALS: Ht 163.8 cm; Wt 74.6 kg
[~2019-10-08 12:13] MED LIST changes: +AUGMENTIN 875-11 TAB PO; +KEPPRA750 MG; +MUCINEX600 MG PO
[2019-10-08] MEDS ORDERED: PAXIL30 MG PO ×2 (12:36→22:16)
[2019-10-08] MEDS ORDERED: UNITHROID100 MCG (12:46)
[2019-10-08] MEDS ORDERED: REMERON30 MG (12:47)
[2019-10-08] MEDS ORDERED: SINEQUAN100 MG (12:49)
[2019-10-08] MEDS ORDERED: CRESTOR10 MG (12:49)
[2019-10-08 13:01] LABS: BASOPHILS 0 % (0-2); EOSINOPHILS 0 % (0-7); HEMATOCRIT 42.7 % (36.0-48.0); HEMOGLOBIN 14.1 g/dL (12-16); IMMATURE GRANULOCYTES 0.2 % (0-5); LYMPHOCYTES 4.4 % (15-50); MCH 32.9 pg (26.0-34.0); MCV 99.8 fL (80.0-100.0); MEAN PLATELET VOLUME 9.3 fL (7.4-10.4); MONOCYTES 6.8 % (2-11); NEUTROPHILS 88.6 % (40-80); RBC 4.28 10x6/uL (4.00-5.40); RDW 14.6 % (11.5-14.5); WBC 12.1 10x3/uL (4.8-10.8)
--- NOTE | 2019-10-08 13:03 | NUR ---
PT HAS ATTEMPTED TO OVERDOSE 4 PREVIOUS TIMES. PT DOES NOT KNOW WHY SHE WAS ADMITTED BUT SHE WAS FOUND UNDER HER BED. FAMILY IS CONCERNED THAT SHE ATTEMPTED TO OVERDOSE AGAIN. PT IS CONFUSED AT TIMES DURING CONVERSATION. PT HAS A HX OF DEPRESSION AND ANXIETY. PT ADMITS TO NOT TAKING HER ORDERED BUSPAR. PT IS A HIGH RISK PER ASSESSMENT AND IS WILLING TO BE ADMITTED TO CUSTODIAL. SITTER ORDERED DUE TO HIGH RISK PER DR. RALPH. RESOURCES AND SAFETY PLAN COMPLETED.
[2019-10-08 13:08] LABS: PLATELET COUNT 234 10x3/uL (130-400)
[2019-10-08 13:11] LABS: CALC OSMOLALITY 271 mosm/kg (275-300); CALCIUM 9.2 mg/dL (8.5-10.1); CARBON DIOXIDE 31.9 mmol/L (21.0-32.0); CHLORIDE - SERUM 96 mmol/L (98-107); CREATININE - SERUM 1.4 mg/dL (0.6-1.3); GLUCOSE 137 mg/dL (74-106); POTASSIUM - SERUM 4.5 mmol/L (3.5-5.1); SODIUM 134 mmol/L (136-145); UREA NITROGEN 19 mg/dL (7-18); eGFR NON AFRICAN AMERICAN 40 mL/min (90-120)
[2019-10-08 13:19] LABS: UDS - AMPHET NEGATIVE QUAL (NEGATIVE); UDS - BARB NEGATIVE QUAL (NEGATIVE); UDS - BENZO POSITIVE QUAL (NEGATIVE); UDS - COCAINE NEGATIVE QUAL (NEGATIVE); UDS - OPIATE NEGATIVE QUAL (NEGATIVE); UDS - PCP NEGATIVE QUAL (NEGATIVE); UDS - THC NEGATIVE QUAL (NEGATIVE)
[2019-10-08 13:26] LABS: ALBUMIN 4.3 g/dL (3.4-5.0); ALKALINE PHOSPHATASE 136 U/L (30-120); ALT (SGPT) 91 U/L (10-68); BILIRUBIN - TOTAL 0.68 mg/dL (0.2-1.3); CKMB 116.3 U/L (0.0-3.6); MAGNESIUM - SERUM 2.9 mg/dL (1.8-2.4); PROTEIN - SERUM 7.1 g/dL (6.4-8.2); THYROID STIMULATING HORMONE 1.35 uIU/mL (0.36-3.74)
[2019-10-08 13:30] LABS: INR 0.93 (0.85-1.17); PROTIME 12.4 SECONDS (11.6-15.0)
[2019-10-08 13:34] LABS: AMORPHOUS SEDIMENT <1+ /lpf (NONE SEEN); BACTERIA FEW /hpf (NEGATIVE); BILIRUBIN NEGATIVE (NEGATIVE); EPITHELIAL CELLS 0-5 /hpf (0-5); GLUCOSE NEGATIVE (NEGATIVE); HYALINE CAST RARE /lpf (NONE SEEN); KETONE SMALL mg/dL (NEGATIVE); NITRITE NEGATIVE (NEGATIVE); RED CELLS - URINE 0-5 /hpf (0-5); SPECIFIC GRAVITY 1.015 (1.005-1.020); UROBILINOGEN NORMAL (NORMAL); WHITE CELLS - URINE RARE /hpf (NEGATIVE)
[2019-10-08 13:34] LABS: TROPONIN-I < 0.017 ng/mL (0.000-0.060)
[2019-10-08 13:45] LABS: APTT 23.5 SECONDS (22.8-39.4)
[2019-10-08 14:20] LABS: CREATINE KINASE 12497 UL (21-215)
--- NOTE | 2019-10-08 16:20 | NUR ---
PATIENT IS A HIGH SUICIDE RISK. SITTER ORDERED FOR PATIENT.
--- NOTE | 2019-10-08 16:50 | NUR ---
NEW ADMIT TO DOCTOR RALPH ON CARE HOME FROM [facility] ED FOR SUICIDAL INTENT. PATIENT'S MOTHER CALLED EMS AND PATIENT WAS FOUND UNDER BED UNCONSCIOUS WITH EMPTY PILL BOTTLES BESIDE HER. PATIENT STATED TO ER STAFF THAT SHE INTENTIONALLY TRIED TO OVERDOSE TODAY. PATIENT HAS 4 PAST ATTEMPTS OF OVERDOSING. PATIENT STATES SHE JUST BECOMES SO DEPRESSED AND CANT HANDLE IT ANYMORE AND TRIES TO OVERDOSE ON PILLS. PATIENT TRANSPORTED TO CARE HOME VIA WHEELCHAIR, ACCOMPANIED BY STAFF. UPON ARRIVAL PATIENT GAVE VERBAL CONSENTS FOR TREATMENT. PATIENT IS A FULL CODE. COOPERATIVE WITH ADMISSION ASSESSMENTS. PATIENT'S ANXIETY INCREASING THROUGHOUT ASSESSMENTS. PRN ATIVAN 0.5 MG IM GIVEN FOR ANXIETY.
[2019-10-08 17:10] LABS: CHOL - HDL RATIO 2.2 ratio (2.3-4.1); THYROID STIMULATING HORMONE 1.36 uIU/mL (0.36-3.74)
--- NOTE | 2019-10-08 20:13 | NUR ---
RECEIVED IN DAYROOM. SITTING IN DAYROOM WITH MHT AT HER SIDE. CALM AND COOPERATIVE WITH CARE AND ASSESMENT. NO STATEMENTS OF SELF HARM MADE. ALERT AT THIS TIME. REDIRECT AND REROEITN NEEDED. ENCOURAGE TO EXPRESS NEEDS. CONTINUES TO SIT CALMLY IN DAYROOM. CONTINUE PLAN OF CARE.
[2019-10-08] MEDS ORDERED: KEPPRA750 MG PO (22:12)
[2019-10-08] MEDS ORDERED: REMERON30 MG PO (22:12)
[2019-10-08] MEDS ORDERED: CRESTOR10 MG PO (22:13)
[2019-10-08] MEDS ORDERED: VISTARIL50 MG PO (22:14)
[2019-10-08] MEDS ORDERED: SINEQUAN100 MG PO (22:16)
[2019-10-08] MEDS ORDERED: SYNTHROID75 MCG PO (22:18)
[2019-10-08] MEDS ORDERED: SEROQUEL100 MG PO (22:20)
[2019-10-08] MEDS ORDERED: ATIVAN1 MG PO (22:32)
--- NOTE | 2019-10-08 23:30 | NUR ---
B)RECEIVED PATIENT LYING IN THE BED. SLURRED SPEECH. CONFUSED AND DISORIENTED. VISUAL HALLUCINATIONS AEB REACHING INTO THE AIR AND PRETENDING TO PUT SOMETHING IN HER MOUTH. POOR HISTORIAN. RELATED HAS HAD 5 SA HOWEVER WAS NOT ABLE TO RECALL CIRCUMSTANCES NOR DATES. PATIENT WOULD RELATE OVERDOSE BUT COULD NOT RECALL TYPE OF MEDICATION NOR THE AMOUNT SHE TOOK. COOPERATIVE WITH ASSESSMENT AND EKG. LOOSE ASSOCIATIONS. SHORT ATTENTION SPAN. I)ADMINISTER MEDS AND MONITOR COMPLIANCE. OBTAIN VERBAL NO HARM CONTRACT. R)MED COMPLIANT. CONTRACTS VERBALLY FOR NO SELF HARM. P)CONTINUE POC AND PROVIDE SAFE ENVIRONMENT.
[2019-10-09] VITALS (11 sets, daily range): BP systolic 97–177; BP diastolic 50–76
--- NOTE | 2019-10-09 15:38 | NUR ---
RECEIVED IN RECLINER AT NURSES STATION THIS AM.COMPIANT WITH MEDS .FREQUENTLY HAS TO BE REMINDED TO NOT GET OUT OF CHAIR WITHOUT ASSIST.FREQUENT VISUAL HALLUCINATIONS OBSERVED.IS UNDER CONSTANT OBSERVATION ,IS HIGH RISK FOR SUICIDE.VERY CONFUSED,NO INSITE TO WHY SHE IS HERE.
--- NOTE | 2019-10-09 18:50 | NUR ---
UNABLE TO PERFORM FREQUENT SCREENER ON PTS SI THOUGHTS AT THIS TIME. DUE TO PATIENT BEING UNABLE TO UNDERSTAND COGNITIVE QUESTIONS. CONFUSED NOTED WELL.
--- NOTE | 2019-10-09 22:33 | NUR ---
PATIENT IS CONFUSED, SHE LAUGHS AT EVERYTHING, COMPLIANT WITH MEDS. NO ADVERSE REACTION NEEDED. DENIES S/I. GOOD AFFECT. WILL MONITOR
[2019-10-10 06:09] LABS: RAPID PLASMA REAGIN Non Reactive (Non Reactive)
--- NOTE | 2019-10-10 14:01 | PSY ---
PATIENT NAME:PETE GAUTHIER MEDICAL RECORD: [id number] : [birth year] LOCATION:[id number] ADMISSION DATE: 10/08/19 ACCOUNT: [id number] PSYCHIATRIC EVALUATION DATE OF EVALUATION: 10/09/19 IDENTIFYING DATA: The patient is 69 years old and she is admitted to the hospital on a voluntary basis. CHIEF COMPLAINT: Intentional overdose. HISTORY OF PRESENT ILLNESS: The patient's elderly mother was unable to reach her. The mother called EMS because in the past this patient has attempted to kill herself. EMS came to the house, was able to gain access and found the patient under her bed with empty or half empty bottles scattered about her. The patient was given Narcan on the way to the Emergency Department with little effect. In the Emergency Room, she said she was trying to kill herself. Her urine drug screen is positive for benzodiazepines only. PAST MEDICAL HISTORY: Significant for hypothyroidism and epilepsy. She reportedly has a history of Lyme disease and has had some minor surgeries. PAST PSYCHIATRIC HISTORY: Significant for extensive outpatient treatment and I would presume inpatient treatment. She tells me she has 2 psychiatrist and actually gives me names and locations, I am not sure which one would be her current psychiatrist. She has attempted to kill herself before and clearly she has a history of psychiatric care. FAMILY HISTORY: Unknown. ALLERGIES: No known drug allergies. CURRENT MEDICATIONS: Include Keppra, Pristiq, Remeron, Synthroid, Klonopin, BuSpar, Wellbutrin, Vistaril, doxepin, Crestor, Paxil, Ativan, Seroquel. SOCIAL HISTORY: The patient is . She has adult children. She denies drug or alcohol abuse. MENTAL STATUS EXAMINATION: The patient is awake, alert and oriented to person and place. She is confused about the date and situation. Her mood is flat. Her affect is constricted. Thought processes are circumstantial. Memory, concentration, and abstraction abilities are moderately impaired and she denies any intent to harm herself or others as well as psychotic symptoms. ASSESSMENT: AXIS I: Major depression, severe, recurrent without psychotic features. AXIS II: Deferred. AXIS III: Hypothyroidism, seizure disorder. AXIS IV: Moderate stressors. AXIS V: Global assessment of functioning is 35. PLAN: At this time, the patient is admitted to the hospital secondary to confusion associated with a polysubstance overdose. She will be monitored for clinical changes and given supportive care. At this point, she is showing evidence of a delirium, most likely secondary to an excessive amount of antihistaminic and anticholinergic load. Her long-term prognosis is guarded. TRANSINT:[id number] Voice Confirmation ID: [id number] DOCUMENT ID: [id number] SUBHA RALPH MD at 1401 CC: [id number] DICTATION DATE: 10/09/19 1535 SUPERVISOR METER SHOP: 10/09/19 1558 ADM IN [facility] [address] [id number]
[2019-10-10 14:07] VITALS: Ht 163.8 cm; Wt 74.6 kg
[2019-10-10 16:03] VITALS: BP 101/60
--- NOTE | 2019-10-10 17:09 | NUR ---
PT SITTING IN W/C AT THIS TIME. PT IS FRIENDLY WITH STAFF. CONFUSED AND DISORIENTED. PT ASKED WHY SHE WAS HERE. NURSE PRIVATELY TOLD HER ABOUT WHAT LEAD TO HER ADMISSION. PT STATED OH WOW I DONT REMEMBER ANY OF THAT." REDIRECT AND REORIENT NEEDED. PT CAN MAKE SOME NEEDS KNOWN. PT DOES HAVE A BRIGHTER AFFECT THIS SHIFT. NO BEHAVIORS NOTED. PT IS COMPLIANT WITH MEDS, VITALS AND ASSESSMENTS. CHAIR ALARM IN PLACE AND ACTIVE. WILL CONT TO MONITOR.
[2019-10-10 20:00] VITALS: BP 127/56
--- NOTE | 2019-10-10 23:51 | NUR ---
B)RECEIVED PATIENT SITTING IN THE DAYROOM AT THE TABLE WITH OTHER FEMALE PEERS. ORIENTED TO PERSON AND PLACE. RELATES REASON FOR HOSPITALIZATION IS "DEPRESSION, ANXIETY AND I NEEDED SOME HELP."UPON ADMISSION IT WAS REPORTED SHE HAD TAKEN AN OVERDOSE. PATIENT RELATED IT WAS NOT ON PURPOSE. I)ADMINISTER MEDS AND MONITOR COMPLIANCE. REORIENT NEEDED. R)MED COMPLIANT. POOR REORIENTATION DUE TO IMPAIRED ABILITY TO REATIN INFORMATION. P)CONTINUE POC AND PROVIDE SAFE ENVIRONMENT.
[2019-10-11 09:57] VITALS: BP 115/61
--- NOTE | 2019-10-11 10:51 | NUR ---
The patient is awake and alert she is pleasant, she is calm and she is interacting with staff and peers. She has not made mention of hallucinations, she has poor insight into her situation. Provide prescribed meds. The patient is copmpliant with meds and unit milieu. Continue POC.
--- NOTE | 2019-10-11 13:21 | NUR ---
The patient c/o nausea, provided her zofran. See MAR.
--- NOTE | 2019-10-11 14:15 | NUR ---
The patient continues to say she feels nauseated, continue to monitor.
--- NOTE | 2019-10-11 15:54 | NUR ---
The patient continues to say she feels nauseated. She asked for something for anxiety. Explained to her that she has klonopin that i will give her now. She said "Maybe I'm nauseated because I am nervous."
[2019-10-11 20:00] VITALS: BP 126/48
--- NOTE | 2019-10-11 21:01 | NUR ---
GAVE PATIENT TYLENOL 650 MG PO FOR BACK PAIN 10 OF 10 AT 20:41, WILL CONTINUE TO MONITOR.
--- NOTE | 2019-10-11 23:25 | NUR ---
B.) PT IS ALERT AND ORIENTED TO SELF. SHE HAS POOR INSIGHT INTO HER SITUATION. SHE DENIES ANY HALLUCINATIONS AT THIS TIME. SHE IS ABLE TO AMBULATE ON HER OWN WITHOUT ASSIST. SHE IS OBSERVED SOCIALIZING WITH HER PEERS. I.) PROVIDED PM MEDICATIONS PRESCRIBED. REDIRECT NEEDED. R.) COMPLIANT WITH ALL MEDICATIONS. EASY TO REDIRECT. P.) WILL CONTINUE TO MONITOR.
[2019-10-12 08:09] VITALS: BP 112/53
--- NOTE | 2019-10-12 08:57 | NUR ---
The patient is awake and alert, she is pleasant and calm, she said she slept ok last night. She is not showing any hallucinations this am. She ambulates independently. Provide prescribed meds. Monitor mood and behavior. Continue POC.
--- NOTE | 2019-10-12 17:19 | NUR ---
The patient c/o blisters on her lower inside of her lip and the right side of her tongue. Called Genny Ivan APN and she ordered Acyclyvir and Abreva.
[2019-10-12 20:00] VITALS: BP 105/57; BP 115/63
--- NOTE | 2019-10-12 22:49 | NUR ---
B.) PT IS ALERT AND ORIENTED X4. SHE IS ABLE TO VOICE HER NEEDS AND CONCERNS AND AMBULATE WITHOUT ASSIST. SHE IS RECEIVED IN THE DAYROOM SOCIALIZING WITH PEERS. SHE IS CALM AND PLEASANT WITH STAFF. I.) PROVIDED PM MEDICATIONS PRESCRIBED. REDIRECT IF NEEDED. R.) COMPLIANT WITH ALL MEDICATIONS. EASY TO REDIRECT. P.) WILL CONTINUE TO MONITOR.
[2019-10-13 08:34] VITALS: BP 109/54
--- NOTE | 2019-10-13 14:28 | NUR ---
The patient looks great and feels great. She is calm and pleasant and she says she is doing so much better. Her only complaint is feeling a little nauseated today. She ambulates independently. Provide prescribed meds. The patient is compliant with meds. Continue POC.
[2019-10-13 20:04] VITALS: BP 117/48; BP 93/57
--- NOTE | 2019-10-13 21:58 | NUR ---
PT RELATES THAT SHE IS ANXIOUS AND CANT SEEM TO RELAX IN ORDER TO GO TO SLEEP. PT APPEARS RESTLESS. ADMINISTERED PRN 0.5 MG ATIVAN IM. WILL CONTINUE TO MONITOR.
--- NOTE | 2019-10-13 22:35 | NUR ---
PT IS RESTING CALMLY IN BED WITH EYES CLOSED. NO DISTRESS NOTED. WILL CONTINUE TO MONITOR.
[2019-10-14 07:40] VITALS: BP 104/64
--- NOTE | 2019-10-14 12:00 | NUR ---
RECEIVED IN HALLWAY OUTSIDE OF NURSES STATION. CALM AND COOPERATIVE WITH CARE AND ASSESSMENT. DENIES SUICIDAL IDEATION. NO HALLUCINATIONS. REDIRECT AND REORIENT NEEDED. EATING LUNCH AT THIS TIME. CONTINUE PLAN OF CARE.
--- NOTE | 2019-10-14 12:04 | PN ---
PATIENT:PETE GAUTHIER MEDICAL RECORD: [id number] LOCATION:[facility] ADMISSION DATE: 10/08/19 PROGRESS NOTE DATE OF SERVICE: 10/10/2019 SUBJECTIVE: The patient's case was discussed with staff. She has no new complaint. OBJECTIVE: The patient is much more cooperative and much less anxious. She is participating in treatment and is cognizant. She denies any intent to harm herself or others. She tells me that she is not wanting to continue to drink, which she says she has done recently. She tells me that if I will prescribe Klonopin for her, then she will not drink. I have explored various treatments for anxiety with her, which she rejects. I am going to treat her with a tapering dose of Klonopin and will also give her BuSpar for its anxiolytic effects. I do not think it is in her best interest to take benzodiazepine on an outpatient basis, and given the circumstances of her admission, I think it is pretty clear she is at risk for overdose whether intentional or accidental. TRANSINT:[id number] Voice Confirmation ID: [id number] DOCUMENT ID: [id number] SUBHA RALPH MD at 1204 CC: [id number] DICTATION DATE: 10/10/19 1606 MONUMENTAL STONEMASON: 10/10/19 1806 ADM IN [id number] [place] [address]
[2019-10-14] MEDS ORDERED: ZOVIRAX200 MG PO (13:19)
[2019-10-14] MEDS ORDERED: MIRALAX17 GM PO (13:21)
[2019-10-14] MEDS ORDERED: FLORAJEN3 CAPS460 MG PO (13:21)
[2019-10-14] MEDS ORDERED: LEVOTHYROXINE100 MCG PO (13:22)
[2019-10-14 21:00] VITALS: BP 102/95; BP 137/68
--- NOTE | 2019-10-14 21:25 | NUR ---
RECEIVED IN HALLWAY OUTSIDE OF NURSES STATION. CALM AND COOPERATIVE WITH CARE AND ASSESSMENT. NO STAtEMENTS OF SELF HARM VOICED. ENCOURAGE TO EXPRESS NEEDS. RESTING IN BED EYES CLOSED AT THIS TIME. CONTINUE PLAN OF CARE.
[2019-10-15 08:04] VITALS: BP 117/57
--- NOTE | 2019-10-15 10:15 | NUR ---
PATIENT DISCHARGED HOME WITH MOTHER. DISCHARGE PAPERWORK FAXED TO DR SALOMON. HARD COPY SENT HOME WITH PATIENT. DISCHARGE INSTRUCTIONS AND DISCHARGE MEDICATIONS REVIEWED WITH PATIENT AND SHE VERBALIZES UNDERSTANDING. MEDICATIONS TO PHARMACEY ELECTRONICALLY. PERSONAL BELONGINGS SENT HOME WITH PATIENT.
--- NOTE | 2019-10-15 15:00 | PN ---
PATIENT:PETE GAUTHIER MEDICAL RECORD: [id number] LOCATION:[facility] ADMISSION DATE: 10/08/19 PROGRESS NOTE DATE OF SERVICE: 10/14/2019 SUBJECTIVE: The patient's case was discussed with staff. She has no new complaint. OBJECTIVE: The patient is fully oriented. Her mood is near euthymic. She denies that she would seek to harm herself or others, although she does report a great deal of anxiety. The anxiety is not observed objectively, it is reported internally. ASSESSMENT: Major depression. PLAN: The patient will be transitioned out of the hospital tomorrow if this level of improvement is maintained. I have questioned her about possible substance abuse, which she denies. She has been educated about the inappropriateness of using most sedatives including benzodiazepines long-term and the inadvisability of using them, particularly in the case of someone with a history of substance abuse. In this particular patient's case, she does have a history of alcoholism, which she minimizes. She does not want any treatment and says that she will just go to outpatient Alcoholics Anonymous. I think her prognosis is fairly guarded and will be largely contingent upon her going to therapy, going to Alcoholics Anonymous and following up with her outpatient psychiatrist. TRANSINT:[id number] Voice Confirmation ID: [id number] DOCUMENT ID: [id number] SUBHA RALPH MD at 1500 CC: [id number] DICTATION DATE: 10/14/19 1316 COMPLETION MANAGER: 10/14/19 1341 DIS IN 10/15/[id number] [place] [address]
== END 2019-10-15 10:00 | disposition home or self-care (01) | DRG 885 ==
LOC: D.ER 12:13 → D.PSYCH 13:56
PROVIDERS: Family Medicine; ADMIT Psychiatry & Neurology Psychiatry; ATTEND Psychiatry & Neurology Psychiatry
DX: F33.9 Major depressive disorder, recurrent, unspecified (principal); R45.851 Suicidal ideations; N39.0 Urinary tract infection, site not specified; B00.2 Herpesviral gingivostomatitis and pharyngotonsillitis; E03.9 Hypothyroidism, unspecified; G40.909 Epilepsy, unspecified, not intractable, without status epilepticus; T42.4X2D Poisoning by benzodiazepines, intentional self-harm, subsequent encounter; E78.5 Hyperlipidemia, unspecified; R11.0 Nausea; G47.00 Insomnia, unspecified; K29.70 Gastritis, unspecified, without bleeding; K59.00 Constipation, unspecified; E78.00 Pure hypercholesterolemia, unspecified

== ENCOUNTER 2019-10-21 18:35 | Inpatient (IN) | payer MEDICARE ==
[~2019-10-21 18:35] MED LIST changes: +ATIVAN1 MG PO; +CRESTOR10 MG; +CRESTOR10 MG PO; +FLORAJEN3 CAPS460 MG PO; +KEPPRA750 MG PO; +LEVOTHYROXINE100 MCG PO; +MIRALAX17 GM PO; +PAXIL30 MG PO; +REMERON30 MG; +SEROQUEL100 MG PO; +SINEQUAN100 MG; +SINEQUAN100 MG PO; +SYNTHROID75 MCG PO; +UNITHROID100 MCG; +ZOVIRAX200 MG PO
--- NOTE | 2019-10-21 18:42 | NUR ---
PLACED IN ER #21 WITH DIRECT/CONTINUOUS OBS. CALLED HS FOR MH ASSESSMENT
--- NOTE | 2019-10-21 18:50 | NUR ---
CALLED [facility], SPOKE WITH ALBERTO. REPORTS NO ANTIDOTE FOR REMERON: SYMPTOMATIC/OBSERVATION.
[2019-10-21] MEDS ORDERED: REMERON15 MG PO (19:01)
--- NOTE | 2019-10-21 19:02 | NUR ---
REPORT TO TA BUCHANAN
--- NOTE | 2019-10-21 19:05 | NUR ---
IN TO SEE PATIENT- PT STATES IS DIZZY AND FEELS NAUSEATED. UP TO BSC WITH ASSI STANCE OF 2 NURSES. VOIDED- URINE TO LAB. PT STATES ONLY TOOK THE REMERON- BUT IS "FEELING WEIRD"- RECONNECTED TO ALL MONITORS. BELONGINGS OBTAINED AND CHANGED INTO PAPER SCRUBS.
[2019-10-21 19:48] LABS: BASOPHILS 0.2 % (0-2); HEMATOCRIT 42.3 % (36.0-48.0); IMMATURE GRANULOCYTES 0.3 % (0-5); LYMPHOCYTES 31.9 % (15-50); MCH 32.3 pg (26.0-34.0); MCHC 33.1 g/dL (31.0-37.0); MCV 97.7 fL (80.0-100.0); MEAN PLATELET VOLUME 8.8 fL (7.4-10.4); MONOCYTES 5.1 % (2-11); NEUTROPHILS 61.5 % (40-80); PLATELET COUNT 270 10x3/uL (130-400); RBC 4.33 10x6/uL (4.00-5.40); RDW 13.6 % (11.5-14.5); WBC 6.3 10x3/uL (4.8-10.8)
[2019-10-21 19:55] VITALS: BP 169/66
[2019-10-21 19:55] LABS: BILIRUBIN NEGATIVE (NEGATIVE); GLUCOSE NEGATIVE (NEGATIVE); KETONE NEGATIVE (NEGATIVE); NITRITE NEGATIVE (NEGATIVE); UROBILINOGEN NORMAL (NORMAL)
--- NOTE | 2019-10-21 19:55 | NUR ---
PT STATES NAUSEA HAS PASSED, BUT STILL FEELS DIZZY.
[2019-10-21 20:07] LABS: ANION GAP 18.2 mmol/L (8-16); CALCIUM 8.9 mg/dL (8.5-10.1); CARBON DIOXIDE 24.6 mmol/L (21.0-32.0); CREATININE - SERUM 1.2 mg/dL (0.6-1.3); POTASSIUM - SERUM 3.8 mmol/L (3.5-5.1)
[2019-10-21 20:08] LABS: UDS - AMPHET NEGATIVE QUAL (NEGATIVE); UDS - BARB NEGATIVE QUAL (NEGATIVE); UDS - BENZO NEGATIVE QUAL (NEGATIVE); UDS - COCAINE NEGATIVE QUAL (NEGATIVE); UDS - OPIATE NEGATIVE QUAL (NEGATIVE); UDS - PCP NEGATIVE QUAL (NEGATIVE); UDS - THC NEGATIVE QUAL (NEGATIVE)
[2019-10-21 20:15] LABS: ALBUMIN 3.7 g/dL (3.4-5.0); BILIRUBIN - TOTAL 0.55 mg/dL (0.2-1.3); PROTEIN - SERUM 7.1 g/dL (6.4-8.2)
--- NOTE | 2019-10-21 20:23 | NUR ---
PT STATES FEELING SOME BETTER. WATCHING TV. WAITING ON LABS. CUSTODIAL HAS ALREADY TALKED TO PATIENT AND STATES WILL TAKE PATIENT ONCE DEEMED MEDICALLY STABLE.
--- NOTE | 2019-10-21 20:48 | NUR ---
ADMITTED TO [facility].
[2019-10-21 20:50] VITALS: BP 139/66
[2019-10-22 00:24] VITALS: BP 139/66; BMI 27.3
[2019-10-22 08:13] LABS: CHOL - HDL RATIO 3.1 ratio (2.3-4.1); LDL-HDL RATIO 1.9 ratio (1.5-3.5); THYROID STIMULATING HORMONE 1.61 uIU/mL (0.36-3.74)
[2019-10-22 08:32] VITALS: Wt 72.4 kg
[2019-10-22 08:58] VITALS: BP 157/66
--- NOTE | 2019-10-22 18:32 | NUR ---
PT ON THE PHONE TALKING WITH MOM AT THIS TIME. SHE STATED "SHE WOULD RATHER BE THAN BE HERE OR AT HOME AT LEAST WHERE SHE COULD HAVE A DRINK." PT HAS BEEN ANXIOUS, DEMANDING XANAX IF SHE DIDNT GET IT SHE WOULD GO HOME AND DRINK. PT HAS BEEN CRYING ON AND OFF ALL DAY. SHE HATES IT HERE AND DONT WANT TO BE HERE. PT IS STATING SHE IS SHAKING, NERVOUS, ANXIOUS AND WANTING TO LEAVE. PT IS IN A W/C DUE TO UNSTEADY GAIT. CHAIR ALARM IN PLACE AND ACTIVE. WILL CONT PLAN OF CARE.
[2019-10-22 20:00] VITALS: BP 136/61
--- NOTE | 2019-10-22 20:24 | NUR ---
RECEIVED IN DAYROOM. SITTING CALMLY IN A CHAIR WITH PEERS AT HER SIDE. SOCIAL. CALM AND COOPERATIVE WITH CARE AND ASSESSMENT. NO STATEMENTS OF SELF HARM VOICED AT THIS TIME. ENCOURAGE TO EXPRESS NEEDS. CONTINUES TO STI CALMLY IN DAYROOM. CONTINUE PLAN OF CARE.
[2019-10-23 07:13] LABS: RAPID PLASMA REAGIN Non Reactive (Non Reactive)
[2019-10-23 08:00] VITALS: BP 129/51
--- NOTE | 2019-10-23 11:00 | NUR ---
RECEIVED IN HALLWAY OUTSIDE OF NURSES STATION. ANXIOUS. AGITATED. VERY ARGUMENTATIVE. UNCOOPERATIVE. NOT REDIRECTING. PRN GEODON 20 MG IM GIVEN FOR AGITATION. CONTINUE PLAN OF CARE.
--- NOTE | 2019-10-23 14:04 | PSY ---
PATIENT NAME:PETE GAUTHIER MEDICAL RECORD: [id number] : 54 LOCATION:[facility] ADMISSION DATE: 10/21/19 ACCOUNT: [id number] PSYCHIATRIC EVALUATION DATE OF EVALUATION: 10/22/19 IDENTIFYING DATA: The patient is 69 years old and she is known to me from previous clinical contact. CHIEF COMPLAINT: Overdose. HISTORY OF PRESENT ILLNESS: The patient presented to the Emergency Room last night via ambulance. She told the Emergency Room doctor that she had taken an overdose of Remeron and wanted to kill herself. Apparently, she only took 7 tablets, but she did not realize that was a nonlethal dose. She reports a lot of anxiety. She endorses numerous neurovegetative depressive symptoms. She is negative for a benzodiazepine or opiate in her urine. She said she drank a 6 pack of beer yesterday, but her blood alcohol level was only 33 at least when she came to the hospital. PAST MEDICAL HISTORY: Significant for hypothyroidism and seizures, probably associated with alcohol and benzodiazepine withdrawal. PAST PSYCHIATRIC HISTORY: Significant for extensive outpatient treatment and some previous inpatient treatment. She sees a psychiatrist in [place] and another one here in [place], although she cannot tell me which one she saw last. She has a history of suicide attempts. In fact, she was here in the middle of September for a suicide attempt. ALLERGIES: No known drug allergies. CURRENT MEDICATIONS: Please see the admissions MAR. SOCIAL HISTORY: The patient is . She has adult children and she does have a history of substance abuse treatment, but denies that she has a substance abuse problem. She insists that everything would be fine if I would just give her prescription for Xanax. MENTAL STATUS EXAMINATION: The patient is awake, alert and oriented to person, place and somewhat to time and situation. Her mood is anxious. Her affect is constricted. Thought processes are circumstantial. Memory, concentration, and abstraction abilities are impaired and she denies that she would seek to harm herself or others. She also denies psychotic symptoms. ASSESSMENT: AXIS I: Major depression, severe, recurrent without psychotic features, alcohol use disorder, sedative hypnotic use disorder. AXIS II: Cluster B personality traits. AXIS III: Hypothyroidism, history of seizure activity. AXIS IV: Moderate. AXIS V: Global assessment of functioning is 40. PLAN: At this time, the patient is admitted to the hospital secondary to an overdose. She has numerous depressive symptoms. She will be treated with both mood stabilizing and antidepressant medications. She will not be treated with sedative hypnotics. She has been offered residential substance abuse treatment when her initial stay here is completed, but she refuses. TRANSINT:[id number] Voice Confirmation ID: [id number] DOCUMENT ID: [id number] SUBHA RALPH MD at 1404 CC: [id number] DICTATION DATE: 10/22/19 1428 TEACHER EDUCATION INSTRUCTOR: 10/22/19 1656 ADM IN [facility] [address] [id number]
[2019-10-23 20:00] VITALS: BP 135/60
--- NOTE | 2019-10-24 00:33 | NUR ---
B.) PT IS ALERT AND ORIENTED X4. SHE IS ABLE TO AMBULATE WITHOUT ASSIST. SHE IS RECEIVED IN THE DAYROOM SOCIALIZING WITH HER PEERS. SHE IS CALM AND COOPERATIVE WITH STAFF. I.) PROVIDED PM MEDICATIONS PRESCRIBED. R.) COMPLIANT WITH ALL MEDICATIONS. P.) WILL CONTINUE TO MONITOR.
--- NOTE | 2019-10-24 08:11 | NUR ---
PT IS RECEIVED IN HER ROOM. SHE GOT LITTLE SLEEP LAST NIGHT. PRESENTATION OF MANIC BEHAVIOR NOTED FROM THE PREVIOUS SHIFT. SHE DENIES ANY SI AT THIS TIME. SHE ALSO DISPLAYS A BIT OF RELIGIOUSITY BEHAVIORS. PREVIOUS SHIFT REPORTS MED COMPLIANCE. WILL CONTINUE TO MONITOR.
[2019-10-24 10:25] VITALS: BP 88/56
--- NOTE | 2019-10-24 12:57 | PN ---
PATIENT:PETE GAUTHIER MEDICAL RECORD: [id number] LOCATION:[facility] ADMISSION DATE: 10/21/19 PROGRESS NOTE DATE OF SERVICE: 10/23/2019 SUBJECTIVE: The patient's case was discussed with staff. She has no new complaint. OBJECTIVE: The patient is very attention seeking and insisting that this is the worst she has ever been and that I must do something to relieve her symptoms immediately. She is crying, she is shaking. Earlier today, she was screaming at one of the other doctors here, demanding Ativan. When he refused, she continued to scream and was so disruptive, she had to receive an injection of Geodon. She is calmer now, as that injection was about 3 hours prior to me talking to her. She is still shaking, crying and expressing a high level of distress. ASSESSMENT: 1. Major depression. 2. Polysubstance abuse. PLAN: The patient says that unless I give her something to help her nerves, she is going to go out and drink and then it will be my fault that I did not help her. Her vital signs are stable. She is not showing objective evidence of withdrawal. She is difficult to interview, but I do take a more detailed history and have at least some suspicion that perhaps she has been medicating an undiagnosed bipolar disorder for all or much of her life. Based on that presumption, I am going to start her on Depakote today and will continue to not use any sedatives or hypnotics. She insisted that she only slept about 15-30 minutes last night, although the nursing staff recorded nearly 7 hours of sleep. She denies currently that she wants to hurt herself, but again her level of distress or at least the level of distress she is presenting is quite high. I have offered her residential substance abuse treatment again and she is dismissive of this. TRANSINT:[id number] Voice Confirmation ID: [id number] DOCUMENT ID: [id number] SUBHA RALPH MD at 1257 CC: [id number] DICTATION DATE: 10/23/19 1436 LABORER STORES: 10/23/19 1518 ADM IN [address] [place] [address]
--- NOTE | 2019-10-24 18:19 | NUR ---
PT ON THE PHONE C/O THAT SHE DOES NOT WANT TO BE HERE IF SHE HAS TO BE HERE THAT SHE WOULD RATHER BE HOME RELAXING WITH A BEER. THAT SOMEONE WOULD RATHER SHOOT ME. PT DOES NOT MAKE THOSE STATEMENTS TO STAFF. BUT DENIES SI.
[2019-10-24 20:00] VITALS: BP 108/56
--- NOTE | 2019-10-24 23:34 | NUR ---
B) Patient is alert and oriented to person and place, no S.I. this shift I) Administered scheduled medication as ordered, monitored for safety R) Mediation compliant, no manic behavior this shift. P) continue plan of care.
--- NOTE | 2019-10-25 01:23 | NUR ---
PATIENT GIVEN GEODON 20MG IM FOR SCREAMING, "DON'T TOUCH ME YOU BITCH!! YOU HAVE TAKEN ALL OF MY MEDS FROM ME AND ALL DAY YESTERDAY I HAVE ASKED FOR HELP AND EVERYONE IGNORED ME". SHE WAS SHAKING AND HER EYES WERE BIG. WILL MONITOR FOR EFFECTIVENESS.
--- NOTE | 2019-10-25 08:57 | NUR ---
The patient is wake and alert, she is interacting with staff and peers. She ambulates independently. She is asking about her meds and education provided. She has not made any mention of S.I., her mood is reactive. Continue POC.
[2019-10-25 10:22] VITALS: BP 128/75
--- NOTE | 2019-10-25 14:45 | PN ---
PATIENT:PETE GAUTHIER MEDICAL RECORD: [id number] LOCATION:[facility]112 ADMISSION DATE: 10/21/19 PROGRESS NOTE DATE OF SERVICE: 10/24/2019 SUBJECTIVE: The patient's case was discussed with staff. She has no new complaint. OBJECTIVE: The patient is fully oriented. She has a mood that is anxious. She is displaying a much lower level of distress that she has the previous few days. She continues to insist that she is in desperate need of a benzodiazepine and I have continued to deny it to her based on her history of substance abuse. Overall, she has significantly improved with a much lower degree of mood lability and agitation. ASSESSMENT: No change in diagnoses. PLAN: At this point, I am strongly suspicious of underlying undiagnosed bipolar disorder that she has been medicating with drugs and alcohol. She has improved dramatically since I started the Depakote. If this level of improvement continues, I anticipate she can be transitioned out of the hospital soon. TRANSINT:[id number] Voice Confirmation ID: [id number] DOCUMENT ID: [id number] SUBHA RALPH MD at 1445 CC: [id number] DICTATION DATE: 10/24/19 1515 COMPOUND MIXER: 10/24/19 0959 ADM IN [address] [place] [address]
--- NOTE | 2019-10-25 15:42 | NUR ---
Nutrition Follow-up: Diet: Regular PO intake: ~40% average x last 9 meals Last BM: none recorded since admit at least x 4 days WT: 161.2# (10/22/19); Admit WT: 161.2# Meds noted: miralax. NO new labs. Recommend continue current diet. Will add Ensure with meals. RD following.
[2019-10-25 20:10] VITALS: BP 151/57
--- NOTE | 2019-10-25 23:05 | NUR ---
B.) PT IS ALERT AND ORIENTED TO SELF, PLACE AND SITUATION. SHE IS CALM AND COOPERATIVE WITH STAFF. SHE IS ABLE TO MAKE HER NEEDS KNOWN. SHE DENIES ANY THOUGHTS OF SELF HARM AT THIS TIME. I.) PROVIDED PM MEDICATIONS. REDIRECT NEEDED. R.) COMPLIANT WITH ALL MEDICATIONS. EASY TO REDIRECT. P.) WILL CONTINUE TO MONITOR
--- NOTE | 2019-10-26 11:37 | NUR ---
The patient is awake and alert. She did not want to get up out of bed. She told staff she felt too badly, she was sick. Staff allowed her to stay in bed until 9 am and she was more cooperative to get up with 1:1 attention. She c/o anxiety and an upset stomach. Berto paiz provided, see MAR.
--- NOTE | 2019-10-26 12:30 | NUR ---
The patient denies nausea at this time and she is feeling better as she is interacting with staff and peers.
--- NOTE | 2019-10-26 12:46 | PN ---
PATIENT:PETE GAUTHIER MEDICAL RECORD: [id number] LOCATION:[facility] ADMISSION DATE: 10/21/19 PROGRESS NOTE DATE OF SERVICE: 10/25/2019 SUBJECTIVE: The patient's case was discussed with staff. She has no new complaint. OBJECTIVE: The patient is calm and cooperative when I speak with her. Earlier today, she was not. She was yelling, cursing and calling the nurses bitches and threatening them because they would not give her Ativan. Her behavior was so out of control that they actually had to give her a p.r.n. injection of Geodon. The patient now apologizes for this. She says that she does not know what comes over her. I have a longitudinal history from the social science manager that the patient has a long history of starting numerous projects and not finishing any that is consistent with bipolar disorder and a long history of mood lability. The patient was talking to someone on the phone during visitation, I believe it was her mother and she was saying that if she has to stay here longer she is going to shoot herself. When asked about this, she denies it, but it was overheard by staff who documented it. Also, the patient was overheard saying that she wanted to go home, so she could just drink beer. ASSESSMENT: Bipolar disorder. PLAN: The patient is going to be continued on the Depakote. I will check a level of this weekend. The patient is in denial about her substance abuse problems and is refusing treatment for that. TRANSINT:[id number] Voice Confirmation ID: [id number] DOCUMENT ID: [id number] SUBHA RALPH MD at 1246 CC: [id number] DICTATION DATE: 10/25/19 1520 COMMUNITY PLANNER: 10/26/19 0034 ADM IN [facility] [address] [place] [address]
[2019-10-26 17:29] VITALS: BP 111/67
[2019-10-26 20:21] VITALS: BP 124/61
--- NOTE | 2019-10-26 23:08 | NUR ---
B.) PT IS ALERT AND ORIENTED X4. SHE IS CALM AND COOPERATIVE WITH STAFF. SHE IS RECEIVED IN THE DAYROOM SOCIALIZING WITH PEERS. SHE C/O MOUTH PAIN. I.) PROVIDED PM MEDICATIONS PRESCRIBED. REDIRECT NEEDED. R.) COMPLIANT WITH ALL MEDICATIONS. EASY TO REDIRECT. P.) WILL CONTINUE TO MONITOR
[2019-10-27 08:25] VITALS: BP 101/57
--- NOTE | 2019-10-27 13:04 | PN ---
PATIENT:PETE GAUTHIER MEDICAL RECORD: [id number] LOCATION:[facility]112 ADMISSION DATE: 10/21/19 PROGRESS NOTE DATE OF SERVICE: 10/26/2019 SUBJECTIVE: The patient's case was discussed with staff. She has no new complaint. OBJECTIVE: The patient is in good behavioral control. She earlier today received p.r.n. medication. She was agitated and difficult to redirect. ASSESSMENT: Bipolar disorder. PLAN: Current medicines have been reviewed. I am going to change her p.r.n. medications slightly. TRANSINT:[id number] Voice Confirmation ID: [id number] DOCUMENT ID: [id number] SUBHA RALPH MD at 1304 CC: [id number] DICTATION DATE: 10/26/19 1304 POURER: 10/26/19 1726 ADM IN [id number] [place] [id number]
[2019-10-27] MEDS ORDERED: CELEXA20 MG PO (13:33)
[2019-10-27] MEDS ORDERED: CRESTOR10 MG PO (13:33)
[2019-10-27] MEDS ORDERED: DEPAKOTE500 MG PO (13:33)
[2019-10-27] MEDS ORDERED: LINZESS145 MCG PO (13:34)
--- NOTE | 2019-10-27 14:52 | PN ---
PATIENT:PETE GAUTHIER MEDICAL RECORD: [id number] LOCATION:[facility] ADMISSION DATE: 10/21/19 PROGRESS NOTE DATE OF SERVICE: 10/27/2019 SUBJECTIVE: The patient's case was discussed with staff. She has no new complaint. OBJECTIVE: The patient is denying intent to harm herself or others. She is generally tolerating her medicines well. ASSESSMENT: 1. Major depression. 2. Polysubstance abuse. PLAN: At this time, the patient will be maintained on current medicines, which I have reviewed. I am going to check a Depakote level and plan on discharging her tomorrow. TRANSINT:[id number] Voice Confirmation ID: [id number] DOCUMENT ID: [id number] SUBHA RALPH MD at 1452 CC: [id number] DICTATION DATE: 10/27/19 1331 FOOT AND ANKLE SURGEON: 10/27/19 1352 ADM IN [address] [place] [address]
--- NOTE | 2019-10-27 15:00 | NUR ---
The patient is attention seeking and she says negative things and tries to staff split. This am staff asked her to get dressed and she then said "Oh she doesn't like me." Explained to her that yes she likes her, but she needs to get dressed in the mornings. She is able to ambulate and she had the w/c and was self propelling in it and staff told her to get out of it and walk so that she can stay independent. She had to be reminded several times today. Provide prescribed meds. The patient is compliant with meds. Continue POC.
--- NOTE | 2019-10-27 16:10 | NUR ---
The patient's Mother is here visiting and she requests to get the cell phone Julia brought as it is her phone. Explained to her that she will have to call the health program analyst tomorrow to get permission since it is locked up in the safe. She says she will call tomorrow.
--- NOTE | 2019-10-27 16:23 | NUR ---
CHECKED ON THE PATIENT'S CELL PHONE, IT IS IN THE NARC BOX AT THE NURSES STATION, WILL GIVE IT TO THE PATIENT'S MOTHER NOW AND LOBITO IT OFF OF THE BELONGINGS SHEET.
--- NOTE | 2019-10-27 19:38 | NUR ---
RECEIVED IN DAYROOM. SITTING IN A CHAIR WITH PEERS AT HER SIDE. CALM AND COOPERATIVE WITH CARE AND ASSESSMENT. NO STATEMENTS OF SELF HARM VOICED AT THIS TIME. ENCOURAGE TO EXPRESS NEEDS. CONTINUES TO SIT CALMLY IN DAYROOM. CONTINUE PLAN OF CARE.
[2019-10-27 20:24] VITALS: BP 135/65
[2019-10-28 09:07] VITALS: BP 115/59
--- NOTE | 2019-10-28 09:12 | NUR ---
MARIO DISCUSSED DISCHARGE PLANS WITH PT. MARIO REFERRED PT BACK TO DR BARRETT FOR FOLLOW UP CARE, ELISEO THORNTON, AND GAVE ALL AA AND NA MEETINGS FOR THE [place]. PT VERBALIZED UNDERSTANDING OF DISCHARGE PLANS. PT WILL LEAVE TODAY AND HER MOTHER WILL PICK HER UP.
--- NOTE | 2019-10-28 11:00 | NUR ---
PATIENT DISCHARGED HOME WITH HER MOTHER. TRANSPORTED HOME BY HER NEPHEW. PAPERWORK FAXED TO PCP AND HARD COPY SENT WITH PATIENT. DISCHARGE PAPERWORK AND MEDS REVIEWED WITH PATIENT AND SHE VERBALIZES UNDERSTANDING. PERSONAL BELONGINGS SENT HOME WITH PATIENT. MEDICATIONS SENT ELECTRONICALLY TO PHARMACY.
--- NOTE | 2019-10-29 13:53 | DS ---
PATIENT:PETE GAUTHIER :54 MEDICAL RECORD: [id number] DISCHARGE SUMMARY ADMISSION DATE: 10/21/19 DISCHARGE DATE: 10/28/19 IDENTIFYING DATA: The patient is 69 years old and she is known to me from previous clinical contact. CHIEF COMPLAINT: Overdose. HISTORY OF PRESENT ILLNESS: The patient presented to the Emergency Room via ambulance. She told the Emergency Room doctor that she had taken an overdose of Remeron and wanted to kill herself. She only took 7 tablets, but she did not understand that was a nonlethal dose. She reports a lot of anxiety and endorses numerous neurovegetative depressive symptoms. She was negative for benzodiazepine in her urine and was also negative for opiates in her urine. She apparently drank a 6 pack of beer the day that she came to the Emergency Room and her blood alcohol level had dropped to only 33 when it was checked in the Emergency Department. HOSPITAL COURSE: The patient was admitted to the hospital and evaluated from both a medical, psychological, and social standpoint. She was treated with both mood stabilizing and memory enhancing medications and showed significant improvement. She had a great deal of attention seeking behavior in order to obtain a sedative hypnotic and was overheard on the telephone to tell someone she was speaking to that, she was just going to come home and drink. She had no evidence of alcohol withdrawal and no evidence of dangerousness and was responding reasonably well to the antidepressant, so she was transitioned out of the hospital. DISCHARGE DIAGNOSES: AXIS I: 1. Major depression, severe, recurrent without psychotic features. 2. Alcohol use disorder. 3. Sedative hypnotic use disorder. AXIS II: Cluster B personality traits. AXIS III: Hypothyroidism, history of seizure disorder. AXIS IV: Moderate. AXIS V: Global assessment of functioning is 50. PLAN: At the time of discharge, the patient was not acutely dangerous to herself or others. She was fully oriented, cooperative and had a euthymic mood. She strongly disagreed with my diagnoses of substance use disorder. This is despite the fact that she has been in a residential substance abuse treatment program in the past. Because she disagrees with the diagnoses, she rejected my referral to a substance abuse program; however, she was given information regarding Narcotics Anonymous and Alcoholics Anonymous, which I suspect she is not going to attend. I think her prognosis is guarded at best. Her outcome will be largely related to her avoidance of alcohol and drug use. If she can do this and go to her outpatient mental health appointments, I think she will be fine, but I am not optimistic she is going to follow through with my recommendations. TRANSINT:[id number] Voice Confirmation ID: [id number] DOCUMENT ID: [id number] DISCHARGE SUMMARY REPORT [id number] EPTE GAUTHIER PETER MD at 1353 CC: [id number] DICTATION DATE: 10/28/19 1508 DESULFURIZER HAND: 10/29/19 1025 DIS IN 10/28/[id number] [place] [address]
== END 2019-10-28 10:50 | disposition home or self-care (01) | DRG 885 ==
LOC: D.ER 18:35 → D.PSYCH 20:35
PROVIDERS: Family Medicine; ADMIT Psychiatry & Neurology Psychiatry; ATTEND Psychiatry & Neurology Psychiatry
DX: F33.2 Major depressive disorder, recurrent severe without psychotic features (principal); R45.851 Suicidal ideations; E03.9 Hypothyroidism, unspecified; T50.902S Poisoning by unspecified drugs, medicaments and biological substances, intentional self-harm, sequela; E78.5 Hyperlipidemia, unspecified; G40.909 Epilepsy, unspecified, not intractable, without status epilepticus; F41.9 Anxiety disorder, unspecified; F60.89 Other specific personality disorders; Z72.89 Other problems related to lifestyle; K59.00 Constipation, unspecified; R11.0 Nausea

== ENCOUNTER 2019-11-07 08:52 | Emergency (ER) | payer OTHER ==
[~2019-11-07] VITALS: Ht 162.6 cm; Wt 72.3 kg
[~2019-11-07 08:52] MED LIST changes: +CELEXA20 MG PO; +DEPAKOTE500 MG PO; +LINZESS145 MCG PO
[2019-11-07 08:54] VITALS: Ht 162.6 cm; Wt 72.3 kg
[2019-11-07 09:19] LABS: BASOPHILS 0.2 % (0-2); EOSINOPHILS 0.7 % (0-7); HEMOGLOBIN 16.2 g/dL (12-16); IMMATURE GRANULOCYTES 0.2 % (0-5); LYMPHOCYTES 21.8 % (15-50); MCH 32.2 pg (26.0-34.0); MCHC 33.1 g/dL (31.0-37.0); MCV 97.4 fL (80.0-100.0); MEAN PLATELET VOLUME 9.4 fL (7.4-10.4); MONOCYTES 7.6 % (2-11); NEUTROPHILS 69.5 % (40-80); PLATELET COUNT 227 10x3/uL (130-400); RBC 5.03 10x6/uL (4.00-5.40); RDW 13.5 % (11.5-14.5); WBC 10.3 10x3/uL (4.8-10.8)
[2019-11-07 09:31] LABS: ANION GAP 11.6 mmol/L (8-16); CALCIUM 9.2 mg/dL (8.5-10.1); CARBON DIOXIDE 28.7 mmol/L (21.0-32.0); CREATININE - SERUM 1.2 mg/dL (0.6-1.3); POTASSIUM - SERUM 4.3 mmol/L (3.5-5.1)
[2019-11-07 09:37] LABS: ALBUMIN 4.2 g/dL (3.4-5.0); BILIRUBIN - TOTAL 0.35 mg/dL (0.2-1.3); PROTEIN - SERUM 7.1 g/dL (6.4-8.2)
[2019-11-07 09:44] LABS: GLUCOSE NEGATIVE (NEGATIVE); KETONE NEGATIVE (NEGATIVE); NITRITE NEGATIVE (NEGATIVE); SPECIFIC GRAVITY 1.015 (1.005-1.020)
[2019-11-07 09:45] LABS: BILIRUBIN NEGATIVE (NEGATIVE); UROBILINOGEN NORMAL (NORMAL)
[2019-11-07 10:05] LABS: UDS - AMPHET NEGATIVE QUAL (NEGATIVE); UDS - BARB NEGATIVE QUAL (NEGATIVE); UDS - BENZO NEGATIVE QUAL (NEGATIVE); UDS - COCAINE NEGATIVE QUAL (NEGATIVE); UDS - OPIATE NEGATIVE QUAL (NEGATIVE); UDS - PCP NEGATIVE QUAL (NEGATIVE); UDS - THC NEGATIVE QUAL (NEGATIVE)
[2019-11-07] MEDS ORDERED: STERAPRED DS 1010 MG PO (10:20)
[2019-11-07 10:58] VITALS: BP 142/74
== END 2019-11-07 10:59 | disposition home or self-care (01) ==
LOC: D.ER 08:52
PROVIDERS: Family Medicine
DX: M54.9 Dorsalgia, unspecified (principal); E07.9 Disorder of thyroid, unspecified; G89.29 Other chronic pain

== ENCOUNTER 2019-11-22 13:10 | Observation (INO) | payer OTHER ==
[~2019-11-22] VITALS: Ht 162.6 cm; Wt 65.8 kg
[~2019-11-22 13:10] MED LIST changes: +STERAPRED DS 1010 MG PO
[2019-11-22] MEDS ORDERED: ZALEPLON (13:27)
[2019-11-22] MEDS ORDERED: KEPPRA750 MG PO (13:29)
[2019-11-22] MEDS ORDERED: ZOVIRAX200 MG PO (13:30)
[2019-11-22] MEDS ORDERED: SINEQUAN100 MG PO (13:30)
[2019-11-22] MEDS ORDERED: PAXIL30 MG PO (13:31)
[2019-11-22 13:55] LABS: BASOPHILS 0.3 % (0-2); EOSINOPHILS 1.4 % (0-7); HEMATOCRIT 45.3 % (36.0-48.0); HEMOGLOBIN 14.5 g/dL (12-16); IMMATURE GRANULOCYTES 0.2 % (0-5); MCH 31.7 pg (26.0-34.0); MCV 99.1 fL (80.0-100.0); MEAN PLATELET VOLUME 10.1 fL (7.4-10.4); MONOCYTES 5.4 % (2-11); NEUTROPHILS 72.7 % (40-80); PLATELET COUNT 217 10x3/uL (130-400); RBC 4.57 10x6/uL (4.00-5.40); WBC 6.6 10x3/uL (4.8-10.8)
[2019-11-22 14:00] VITALS: BP 131/68
[2019-11-22 14:02] LABS: CALC OSMOLALITY 280 mosm/kg (275-300); CALCIUM 9.3 mg/dL (8.5-10.1); CARBON DIOXIDE 29.1 mmol/L (21.0-32.0); CHLORIDE - SERUM 103 mmol/L (98-107); CREATININE - SERUM 1.3 mg/dL (0.6-1.3); GLUCOSE 147 mg/dL (74-106); POTASSIUM - SERUM 3.8 mmol/L (3.5-5.1); SODIUM 140 mmol/L (136-145); UREA NITROGEN 9 mg/dL (7-18); eGFR NON AFRICAN AMERICAN 43 mL/min (90-120)
[2019-11-22 14:13] LABS: APTT 28.4 SECONDS (22.8-39.4); INR 1.05 (0.85-1.17); PROTIME 13.6 SECONDS (11.6-15.0)
[2019-11-22 14:21] LABS: ALBUMIN 3.6 g/dL (3.4-5.0); ALKALINE PHOSPHATASE 103 U/L (30-120); ALT (SGPT) 35 U/L (10-68); BILIRUBIN - TOTAL 0.42 mg/dL (0.2-1.3); CKMB 0.6 U/L (0.0-3.6); CREATINE KINASE 220 UL (21-215); MAGNESIUM - SERUM 2.1 mg/dL (1.8-2.4); PROTEIN - SERUM 6.7 g/dL (6.4-8.2); THYROID STIMULATING HORMONE 6.03 uIU/mL (0.36-3.74); TROPONIN-I < 0.017 ng/mL (0.000-0.060); VALPROIC ACID (DEPAKOTE) < 3.0 ug/mL (50.0-100.0)
[2019-11-22 14:46] LABS: UDS - AMPHET NEGATIVE QUAL (NEGATIVE); UDS - BARB NEGATIVE QUAL (NEGATIVE); UDS - BENZO POSITIVE QUAL (NEGATIVE); UDS - COCAINE NEGATIVE QUAL (NEGATIVE); UDS - OPIATE NEGATIVE QUAL (NEGATIVE); UDS - PCP NEGATIVE QUAL (NEGATIVE); UDS - THC NEGATIVE QUAL (NEGATIVE)
[2019-11-22 14:57] LABS: BACTERIA MODERATE /hpf (NEGATIVE); BILIRUBIN NEGATIVE (NEGATIVE); GLUCOSE NEGATIVE (NEGATIVE); KETONE NEGATIVE (NEGATIVE); NITRITE POSITIVE (NEGATIVE); UROBILINOGEN NORMAL (NORMAL); WHITE CELLS - URINE 0-5 /hpf (NEGATIVE)
[2019-11-22 15:14] VITALS: BP 147/63
--- NOTE | 2019-11-22 15:49 | NUR ---
PT VOIDED 500 ML VIA BEDPAN
--- NOTE | 2019-11-22 16:10 | NUR ---
REPORT TO TA MCCOY
[2019-11-22 16:15] VITALS: BP 138/64
--- NOTE | 2019-11-22 16:20 | NUR ---
ADMIT TO ROOM # 2208, CONDITION STABLE
--- NOTE | 2019-11-22 17:03 | NUR ---
IV IN LEFT AC WAS UNFORTUNATELY LOST ON ARRIVAL. CAME OUT TIP INTACT. IV THERAPY RESTARTED IN LEFT FOREARM WITH 22G. TWO ATTEMPTS. CL IN REACH. BED ALARM ON. WCTM
[2019-11-22 17:15] VITALS: BP 144/54; BMI 24.9
[2019-11-22] MEDS ORDERED: SEROQUEL100 MG PO (17:22)
[2019-11-22] MEDS ORDERED: ATIVAN1 MG PO (17:22)
--- NOTE | 2019-11-22 18:51 | NUR ---
Informed halfway about the screen, spoke with Meagan. she states "they did not receive a call from the ER regarding this patient". Could not reach the house supersivor, two attempts. She was in halfway in October of this year.
--- NOTE | 2019-11-22 19:30 | NUR ---
PSYCH HERE TO EVALUTATE PATIENT. STATES SCORED LOW ON SCALE. EVAULATION ON CHART.PATIENT RESTING IN BED WITHOU NO COMPLAITNS VOICED. RESP UNALBORED. CL IN REACH
[2019-11-22 20:00] VITALS: BP 116/55
[2019-11-23] VITALS: BP 112/59
--- NOTE | 2019-11-23 01:00 | NUR ---
DR RALPH NOTIFIED AND REVIEWED PT's BEHAVIOR AND ASSESSMENT RESULTS. PT IS A LOW RISK PER DR RALPH. DR RALPH STATED TO GIVE RESOURCES TO PT AT TIME OF DISCHARGE. NO FURTHER ORDERS AT THIS TIME. RESOURCES REVIEWED WITH PT AND SHE VERBALIZED UNDERSTANDING.
--- NOTE | 2019-11-23 02:48 | NUR ---
I have reviewed this patient and I concur with the Shift Assessment completed by the Licensed Practical Nurse today this shift.
[2019-11-23 04:00] VITALS: BP 118/64
[2019-11-23 05:50] LABS: BASOPHILS 0.4 % (0-2); EOSINOPHILS 4.5 % (0-7); HEMATOCRIT 43.7 % (36.0-48.0); HEMOGLOBIN 13.7 g/dL (12-16); LYMPHOCYTES 41.6 % (15-50); MCH 31.1 pg (26.0-34.0); MCHC 31.4 g/dL (31.0-37.0); MCV 99.3 fL (80.0-100.0); MEAN PLATELET VOLUME 9.6 fL (7.4-10.4); MONOCYTES 7.6 % (2-11); NEUTROPHILS 45.9 % (40-80); PLATELET COUNT 201 10x3/uL (130-400)
[2019-11-23 05:55] LABS: WBC 4.5 10x3/uL (4.8-10.8)
[2019-11-23 05:58] LABS: PLATELET ESTIMATE NORMAL
[2019-11-23 06:12] LABS: ALBUMIN 3.1 g/dL (3.4-5.0); ANION GAP 9.9 mmol/L (8-16); BILIRUBIN - TOTAL 0.33 mg/dL (0.2-1.3); CALCIUM 8.4 mg/dL (8.5-10.1); POTASSIUM - SERUM 3.9 mmol/L (3.5-5.1); PROTEIN - SERUM 5.6 g/dL (6.4-8.2)
[2019-11-23 09:12] VITALS: BP 130/68
[2019-11-23 10:25] VITALS: Ht 162.6 cm; Wt 65.8 kg
[2019-11-23 13:11] VITALS: BP 130/47
[2019-11-23 17:05] VITALS: BP 147/54
--- NOTE | 2019-11-23 19:00 | NUR ---
BEDSIDE REPORT RECEIVED AND CARE OF PT ASSUMED. PT SITTING UP IN BED WITH BED ALARM SOUNDING. BED WET DUE TO INCONTINENCE. ASSISTED PT UP TO TOILET AND CHANGED ALL LINENS AND GOWN. POSITIONED IN BED FOR COMFORT. BED ALARM ACTIVATED.
--- NOTE | 2019-11-23 19:39 | NUR ---
I have reviewed this patient and I concur with the Shift Assessment completed by the Licensed Practical Nurse today this shift.
[2019-11-23 20:15] VITALS: BP 154/72
--- NOTE | 2019-11-23 20:35 | NUR ---
HS MEDICATIONS GIVEN. WILL CONTINUE TO MONITOR FOR NEEDS.
[2019-11-24 01:11] VITALS: BP 159/67
--- NOTE | 2019-11-24 01:15 | NUR ---
PT PULLED OUT IV AND WAS YELLING FOR HELP. RE-SITED TO LEFT THUMB / HAND USING 24 G CATHETER IN 2 STICKS. IV FLUIDS RE-STARTED.
--- NOTE | 2019-11-24 01:20 | NUR ---
GAVE ATIVAN IVP AND TYLENOL PO FOR C/O HEADACHE AND ANXIETY. WILL MONITOR FOR EFFECTIVENESS.
--- NOTE | 2019-11-24 04:43 | NUR ---
COLLECTED URINE AND DELIVERED TO LAB FOR ORDERED CULTURE.
[2019-11-24 06:36] VITALS: BP 169/64
--- NOTE | 2019-11-24 07:51 | NUR ---
pt up I to bathroom, pulled out her iv, bed alarm sounding
[2019-11-24 08:30] VITALS: BP 144/76
[2019-11-24 09:03] LABS: BASOPHILS 0.4 % (0-2); EOSINOPHILS 3.2 % (0-7); HEMOGLOBIN 13.7 g/dL (12-16); LYMPHOCYTES 41.9 % (15-50); MCH 31.8 pg (26.0-34.0); MCHC 31.9 g/dL (31.0-37.0); MCV 99.8 fL (80.0-100.0); MONOCYTES 5.8 % (2-11); NEUTROPHILS 48.7 % (40-80); PLATELET COUNT 194 10x3/uL (130-400); RBC 4.31 10x6/uL (4.00-5.40)
[2019-11-24 09:26] LABS: ALBUMIN 3.5 g/dL (3.4-5.0); ANION GAP 10.6 mmol/L (8-16); BILIRUBIN - TOTAL 0.31 mg/dL (0.2-1.3); CALCIUM 8.7 mg/dL (8.5-10.1); CARBON DIOXIDE 28.1 mmol/L (21.0-32.0); CREATININE - SERUM 1.1 mg/dL (0.6-1.3); PHOSPHOROUS 3.4 mg/dL (2.5-4.9); POTASSIUM - SERUM 3.7 mmol/L (3.5-5.1); PROTEIN - SERUM 5.9 g/dL (6.4-8.2)
--- NOTE | 2019-11-24 10:06 | NUR ---
RESTING IN BED, NO DISTRESS NOTED, IV OUT, CONFUSED, CONT TO MONITOR
[2019-11-24 12:21] VITALS: BP 143/77
--- NOTE | 2019-11-24 15:09 | NUR ---
walked into pt room to find sl removed, no bleeding noted
[2019-11-24 17:48] VITALS: BP 138/78
--- NOTE | 2019-11-24 19:31 | NUR ---
PATIENT RESTING IN BED AND DENIES NEEDS AT THIS TIME. PATIENT IS CONFUSED AT THIS TIME. BED IN LOWEST POSITION, CALL LIGHT WITHIN REACH, AND BED ALARM ON. ENCOURAGED THE PATIENT TO CALL IF SHE HAS NEEDS. WILL CONTINUE TO MONITOR.
[2019-11-24 20:08] VITALS: BP 141/72
[2019-11-25 04:00] VITALS: BP 125/55
[2019-11-25 05:25] LABS: BASOPHILS 0.5 % (0-2); HEMATOCRIT 43.2 % (36.0-48.0); HEMOGLOBIN 13.8 g/dL (12-16); IMMATURE GRANULOCYTES 0.2 % (0-5); LYMPHOCYTES 38.4 % (15-50); MCH 31.8 pg (26.0-34.0); MCHC 31.9 g/dL (31.0-37.0); MCV 99.5 fL (80.0-100.0); MEAN PLATELET VOLUME 9.6 fL (7.4-10.4); NEUTROPHILS 48.9 % (40-80); PLATELET COUNT 197 10x3/uL (130-400); RBC 4.34 10x6/uL (4.00-5.40); RDW 13.1 % (11.5-14.5); WBC 4.3 10x3/uL (4.8-10.8)
[2019-11-25 05:49] LABS: ALBUMIN 3.2 g/dL (3.4-5.0); ANION GAP 9.7 mmol/L (8-16); BILIRUBIN - TOTAL 0.29 mg/dL (0.2-1.3); CALCIUM 8.9 mg/dL (8.5-10.1); CARBON DIOXIDE 29.3 mmol/L (21.0-32.0); CREATININE - SERUM 1.1 mg/dL (0.6-1.3); MAGNESIUM - SERUM 2.2 mg/dL (1.8-2.4); PHOSPHOROUS 3.9 mg/dL (2.5-4.9)
--- NOTE | 2019-11-25 07:54 | NUR ---
PT LYING IN BED ASLEEP ON HER RT SIDE, PT IS EASILY AWAKENED FOR ASSESSMENT AND IS VERY PLEASANT THIS MORNING. GAVE PT CRANBERRY JUICE, LUNGS CTA, IV IN LT FA, SL, STARTED ABX. BED IN LOWEST POSITION, CL IN REACH NO NEEDS VOICED AT THIS TIME. ASSUME PT CARE
[2019-11-25 09:12] VITALS: BP 121/64
--- NOTE | 2019-11-25 10:37 | NUR ---
I have reviewed this patient and I concur with the Shift Assessment completed by the Licensed Practical Nurse today this shift.
[2019-11-25 12:38] VITALS: BP 118/64
--- NOTE | 2019-11-25 14:39 | NUR ---
OT NOTE: PT COMPLETED SUPINE TO SIT WITH MIN A X2. PT COMPLETED SIT TO STAND WITH MIN A X2. PT COMPLETED ADL MOB WITH HH A. PT COMPLETED UE AROM AX WITH FUNCTIONAL TASKS. [phone] THANK YOU,RACHEL GUTIERREZ
--- NOTE | 2019-11-25 15:03 | MORECARE ---
CASE MANAGEMENT DISCHARGE SUMMARY PATIENT: PETE GAUTHIER BLAYNE UNIT: [id number] ADM DATE: 11/22/19 AGE: 69 : 52 SEX: F ROOM/BED: D.2223 AUTHOR: AMARA JACQUES PHYSICIAN: REFERRING PHYSICIAN: LUPIS MICHAEL MD DATE OF SERVICE: 11/25/19 Discharge Plan Patient Name: PETE GAUTHIER Facility: [facility]:[place] : 1950 Planned Disposition: Anticipated Discharge Date: Discharge Date: Expected LOS: Initial Reviewer: [email or web address] Initial Review Date: 11/22/2019 Generated: 11/25/19 4:02 pm Comments DCP- Discharge Planning Updated by [email or web address]: Manuela Figueroa on 11/25/19 1:[address] Patient Name: PETE GAUTHIER Admission Status: ER Accout number: [id number] Admission Date: 11-22-2019 : 1950 Admission Diagnosis: Attending: LUPIS MICHAEL Current LOS: 3 Anticipated DC Date: Planned Disposition: Primary Insurance: [employer] Discharge Planning Comments: CM met with patient at bedside after explaining CM role and obtaining verbal consent. CM discussed availability / needs of home health, REHAB and medical equipment. STATES LIVES WITH HER ADULT NEPHEW AND PLANS TO DC TO HOME WITH HIM. HAS A CANE AND A WALKER AT HOME. DR. SALOMON IS HER PCP AND [facility]. CM TO FOLLOW AND ASSIST NEEDED. Alteration Worker: Manuela Figueroa Coverage Notice Reviewer: [email or web address] Valeria Huertas Notice Issued Date-Time: 11/23/2019 15:20 Notice Type: Medicare Outpatient Observation Notice Notice Delivered To: Patient Relationship to Patient: Self Brim Rounder Name: Delivery Method: HAND - Hand Delivered Jemma Days: Prior Verbal Notification: Recipient Understood Notice: Yes Recipient Signature: Yes Med Rec Note Co-signed by Attending: Coverage Notice Comment: Patient Name: PETE GAUTHIER Page [phone] at 1503 All edits/amendments must be made on the electronic document DICTATION DATE: 11/25/19 1502 TURNSTILE ATTENDANT: BRYANT 11/25/19 1502 RPT#: [id number] DC DATE: STATUS: ADM IN [facility] [address] [place] [address] END OF REPORT
[2019-11-25 18:45] VITALS: BP 112/57
[2019-11-25 20:00] VITALS: BP 110/51
--- NOTE | 2019-11-26 00:32 | NUR ---
RESTING IN BED EYES CLOSED AROUSED TO VOICE, DENIES PAIN OR NEEDS AT THSI TIME, SEE SHIFT ASSESSMENT, CALL LIGHT N REACH
[2019-11-26 04:00] VITALS: BP 114/58
[2019-11-26 07:18] LABS: BASOPHILS 0.2 % (0-2); EOSINOPHILS 2.6 % (0-7); HEMATOCRIT 44.5 % (36.0-48.0); HEMOGLOBIN 14.3 g/dL (12-16); IMMATURE GRANULOCYTES 0.4 % (0-5); LYMPHOCYTES 44.6 % (15-50); MCH 31.6 pg (26.0-34.0); MCHC 32.1 g/dL (31.0-37.0); MCV 98.2 fL (80.0-100.0); MEAN PLATELET VOLUME 9.9 fL (7.4-10.4); MONOCYTES 7.8 % (2-11); NEUTROPHILS 44.4 % (40-80); PLATELET COUNT 212 10x3/uL (130-400); RBC 4.53 10x6/uL (4.00-5.40); RDW 13.1 % (11.5-14.5)
--- NOTE | 2019-11-26 07:25 | NUR ---
PT IS AWAKE AND ALERT THIS MORNING, STILL CONFUSED AT TIMES, IV IN LT FA SL, PATENT, PT REQUESTED CRANBERRY JUICE THIS MORNING. NO OTHER NEEDS VOICED, CONTINUE WITH PLAN OF CARE
[2019-11-26 07:34] LABS: ALBUMIN 3.5 g/dL (3.4-5.0); ANION GAP 7.3 mmol/L (8-16); BILIRUBIN - TOTAL 0.35 mg/dL (0.2-1.3); CALCIUM 9.4 mg/dL (8.5-10.1); CARBON DIOXIDE 31.5 mmol/L (21.0-32.0); PHOSPHOROUS 3.6 mg/dL (2.5-4.9); POTASSIUM - SERUM 3.8 mmol/L (3.5-5.1); PROTEIN - SERUM 6.5 g/dL (6.4-8.2)
[2019-11-26 09:01] VITALS: BP 133/61
[2019-11-26] MEDS ORDERED: NICODERM CQ1 EAC3 TRANSDERM (09:16)
[2019-11-26] MEDS ORDERED: MACROBID100 MG PO (09:17)
--- NOTE | 2019-11-26 10:31 | NUR ---
OBTAINED URINE CULTURE THROUGH IN AND OUT. PT HAD 600 OUTPUT, ASSISTED PT UP TO RESTROOM TO COMPLETE EMPTYING BLADDER AND HAD A SM BM WELL. NO S/SX OF DISTRERSS, BED ALARM TUIRNED BACK ON, PT DID REQUEST ATIVAN UPON DC, EXPLAINED TO PT THAT SHE WILL NEED TO GET WITH PCP FOR RX. CL IN REACH. CONTINUE WITH PLAN OF CARE
[2019-11-26 11:59] VITALS: BP 117/46
--- NOTE | 2019-11-26 12:39 | NUR ---
PT PAT MACE, INQUIRED ON WHEN LUNCH WILL BE HERE, EXPLAINED THAT TRAYS ARE BEING PASSED WE SPEAK. PT IV IS SITTING ON BEDSIDE TABLE, PT HAD REMOVED OWN IV WITH CATHETER INTACT. NO OTHER NEEDS VOICED, CONTINUE WITH PLAN OF CARE
--- NOTE | 2019-11-26 14:16 | NUR ---
Nutrition follow-up: Diet: Regular PO Intake ~60% average of meals Labs reviewed WT: 145# PO itnake fair at this time Will continue to provide food choices and encourage increased po intake RDN following.
--- NOTE | 2019-11-26 19:43 | NUR ---
OT NOTE: PT COMPLETED SUPINE TO SIT WITH SBA. PT COMPLETED ADL MOB WITH HH A. PT COMPLETED TOILETING TASK WITH SPV/SBA. [id number] THANK YOU,RACHEL GUTIERREZ
--- NOTE | 2019-11-27 08:59 | MORECARE ---
CASE MANAGEMENT DISCHARGE SUMMARY PATIENT: PETE GAUTHIER BLAYNE UNIT: [id number] ADM DATE: 11/22/19 AGE: 69 : 52 SEX: F ROOM/BED: D.2223 AUTHOR: AMARA JACQUES PHYSICIAN: REFERRING PHYSICIAN: LUPIS MICHAEL MD DATE OF SERVICE: 11/27/19 Discharge Plan Patient Name: PETE GAUTHIER Facility: [facility]:[place] : 1950 Planned Disposition: Anticipated Discharge Date: Discharge Date: 11/26/2019 Expected LOS: Initial Reviewer: [email or web address] Initial Review Date: 11/22/2019 Generated: 11/27/19 9:59 am DCP- Discharge Planning Updated by [email or web address]: Manuela Figueroa on 11/25/19 1:[address] Patient Name: PETE GAUTHIER Admission Status: ER Accout number: [id number] Admission Date: 11-22-2019 : 1950 Admission Diagnosis: Attending: LUPIS MICHAEL Current LOS: 3 Anticipated DC Date: Planned Disposition: Primary Insurance: [employer] Discharge Planning Comments: CM met with patient at bedside after explaining CM role and obtaining verbal consent. CM discussed availability / needs of home health, REHAB and medical equipment. STATES LIVES WITH HER ADULT NEPHEW AND PLANS TO DC TO HOME WITH HIM. HAS A CANE AND A WALKER AT HOME. DR. SALOMON IS HER PCP AND [facility] CM TO FOLLOW AND ASSIST NEEDED. Offender Job Retention Specialist: Manuela Figueroa Coverage Notice Reviewer: [id number] - Marianela Huertas Notice Issued Date-Time: 11/23/2019 15:20 Notice Type: Medicare Outpatient Observation Notice Notice Delivered To: Patient Relationship to Patient: Self Turret Lathe Set Up Operator Name: Delivery Method: HAND - Hand Delivered Jemma Days: Prior Verbal Notification: Recipient Understood Notice: Yes Recipient Signature: Yes Med Rec Note Co-signed by Attending: Coverage Notice Comment: Last DP export: 11/25/19 2:03 pm Patient Name: PETE GAUTHIER Page [phone] at 0859 All edits/amendments must be made on the electronic document DICTATION DATE: 11/27/1959 PAINT GRINDER: BRYANT 11/27/19 0859 RPT#: [id number] DC DATE:11/26/19 STATUS: DIS IN [facility] [address] [place] [address] END OF REPORT
--- NOTE | 2019-11-27 10:41 | MORECARE ---
CASE MANAGEMENT DISCHARGE SUMMARY PATIENT: PETE GAUTHIER BLAYNE UNIT: [id number] ADM DATE: 11/22/19 AGE: 69 : 52 SEX: F ROOM/BED: D.2223 AUTHOR: AMARA JACQUES PHYSICIAN: REFERRING PHYSICIAN: LUPIS MICHAEL MD DATE OF SERVICE: 11/27/19 Discharge Plan Patient Name: PETE GAUTHIER Facility: [facility]:[place] : 1950 Planned Disposition: Anticipated Discharge Date: Discharge Date: 11/26/2019 Expected LOS: Initial Reviewer: [email or web address] Initial Review Date: 11/22/2019 Generated: 11/27/19 11:40 am DCP- Discharge Planning Updated by [email or web address]: Manuela Figueroa on 11/25/19 1:[address] Patient Name: PETE GAUTHIER Admission Status: ER Accout number: [id number] Admission Date: 11-22-2019 : 1950 Admission Diagnosis: Attending: LUPIS MICHAEL Current LOS: 3 Anticipated DC Date: Planned Disposition: Primary Insurance: [employer] Discharge Planning Comments: CM met with patient at bedside after explaining CM role and obtaining verbal consent. CM discussed availability / needs of home health, REHAB and medical equipment. STATES LIVES WITH HER ADULT NEPHEW AND PLANS TO DC TO HOME WITH HIM. HAS A CANE AND A WALKER AT HOME. DR. SALOMON IS HER PCP AND SHE USES [facility]. CM TO FOLLOW AND ASSIST NEEDED. Mail Sorter: Manuela Figueroa External Providers External Provider: [facility] Next Contact Date: Service Request Date: Service Type: Resolution: Reviewer: Comments: Coverage Notice Reviewer: [id number] - Marianela Huertas Notice Issued Date-Time: 11/23/2019 15:20 Notice Type: Medicare Outpatient Observation Notice Notice Delivered To: Patient Relationship to Patient: Self X Ray Developer Name: Delivery Method: HAND - Hand Delivered Jemma Days: Prior Verbal Notification: Recipient Understood Notice: Yes Recipient Signature: Yes Med Rec Note Co-signed by Attending: Coverage Notice Comment: Reviewer: [id number] Valeria Figueroa Notice Issued Date-Time: 11/27/2019 10:36 Notice Type: Patient Choice Letter Notice Delivered To: Patient Relationship to Patient: X Ray Developer Name: Delivery Method: PHONE - Phone Jemma Days: Prior Verbal Notification: Recipient Understood Notice: Recipient Signature: Med Rec Note Co-signed by Attending: Coverage Notice Comment: CALLED AND WANTS HH WITH [facility] OR [facility] Last DP export: 11/27/19 7:59 am Patient Name: PETE GAUTHIER Page [phone] at 1041 All edits/amendments must be made on the electronic document DICTATION DATE: 11/27/19 1040 BREAD WRAPPER OPERATOR: BRYANT 11/27/19 1040 RPT#: [id number] DC DATE:11/26/19 STATUS: DIS IN [facility] [address] [place] [address] END OF REPORT
== END 2019-11-26 16:54 | disposition home or self-care (01) ==
LOC: D.ER 13:10 → OBSVTIME 15:40 → D.MS 15:40
PROVIDERS: Family Medicine; ADMIT Family Medicine; ATTEND Family Medicine
DX: G93.41 Metabolic encephalopathy (principal); N39.0 Urinary tract infection, site not specified; G40.909 Epilepsy, unspecified, not intractable, without status epilepticus; E03.9 Hypothyroidism, unspecified; E78.5 Hyperlipidemia, unspecified; F17.203 Nicotine dependence unspecified, with withdrawal; F12.90 Cannabis use, unspecified, uncomplicated; G62.9 Polyneuropathy, unspecified

== ENCOUNTER 2020-01-24 14:32 | Emergency (ER) | payer OTHER ==
[~2020-01-24] VITALS: Ht 162.6 cm; Wt 63.6 kg
[~2020-01-24 14:32] MED LIST changes: +MACROBID100 MG PO; +NICODERM CQ1 EAC3 TRANSDERM; +ZALEPLON
[2020-01-24 15:03] VITALS: Ht 162.6 cm; Wt 63.6 kg
[2020-01-24 15:49] LABS: INR 1.38 (0.85-1.17); PROTIME 16.8 SECONDS (11.6-15.0)
[2020-01-24 15:53] LABS: ANION GAP 15.7 mmol/L (8-16); CALCIUM 9.7 mg/dL (8.5-10.1); CARBON DIOXIDE 27.1 mmol/L (21.0-32.0); CREATININE - SERUM 1.1 mg/dL (0.6-1.3); POTASSIUM - SERUM 4.8 mmol/L (3.5-5.1)
[2020-01-24 15:59] LABS: ALBUMIN 4.1 g/dL (3.4-5.0); BILIRUBIN - TOTAL 0.6 mg/dL (0.2-1.3); PROTEIN - SERUM 7.4 g/dL (6.4-8.2)
[2020-01-24 16:02] LABS: BASOPHILS 0.2 % (0-2); EOSINOPHILS 1.5 % (0-7); HEMATOCRIT 51.1 % (36.0-48.0); HEMOGLOBIN 16.5 g/dL (12-16); IMMATURE GRANULOCYTES 0.2 % (0-5); LYMPHOCYTES 41.5 % (15-50); MCH 31.7 pg (26.0-34.0); MCHC 32.3 g/dL (31.0-37.0); MCV 98.3 fL (80.0-100.0); MEAN PLATELET VOLUME 10.1 fL (7.4-10.4); MONOCYTES 6.5 % (2-11); NEUTROPHILS 50.1 % (40-80); RDW 15.3 % (11.5-14.5); WBC 5.2 10x3/uL (4.8-10.8)
[2020-01-24 16:05] LABS: PLATELET COUNT 141 10x3/uL (130-400)
[2020-01-24 18:39] LABS: BILIRUBIN NEGATIVE (NEGATIVE); KETONE NEGATIVE (NEGATIVE); NITRITE NEGATIVE (NEGATIVE); UROBILINOGEN NORMAL (NORMAL)
[2020-01-24 18:40] LABS: BACTERIA FEW /hpf (NONE SEEN); EPITHELIAL CELLS OCC /hpf (0-5); RED CELLS - URINE 0-5 /hpf (0-5); WHITE CELLS - URINE 0-5 /hpf (0-5)
[2020-01-24] MEDS ORDERED: PROTONIX40 MG PO (19:01)
[2020-01-24 19:59] VITALS: BP 147/61
== END 2020-01-24 19:59 | disposition home or self-care (01) ==
LOC: D.ER 14:32
PROVIDERS: Emergency Medicine
DX: K29.70 Gastritis, unspecified, without bleeding (principal); K21.9 Gastro-esophageal reflux disease without esophagitis

== ENCOUNTER 2020-07-27 07:48 | Emergency (ER) | payer SELFPAY ==
[~2020-07-27] VITALS: Ht 156 cm; Wt 63.6 kg
[~2020-07-27 07:48] MED LIST changes: +DILANTIN100 MG PO; +LITHIUM CARBON300 MG PO; +PROTONIX40 MG PO; +TRAZODONE HCL50 MG PO
[2020-07-27 07:50] VITALS: BP 167/70; Ht 156 cm; Wt 63.6 kg
[2020-07-27 08:37] LABS: BASOPHILS 0.3 % (0-2); EOSINOPHILS 1.5 % (0-7); HEMATOCRIT 47.2 % (36.0-48.0); HEMOGLOBIN 15.4 g/dL (12-16); IMMATURE GRANULOCYTES 0.2 % (0-5); LYMPHOCYTE ABS# 2.11 10x3/uL (1.18-3.74); LYMPHOCYTES 34.1 % (15-50); MCH 32.7 pg (26.0-34.0); MCHC 32.6 g/dL (31.0-37.0); MCV 100.2 fL (80.0-100.0); MEAN PLATELET VOLUME 8.7 fL (7.4-10.4); MONOCYTES 7.4 % (2-11); NEUTROPHILS 56.5 % (40-80); PLATELET COUNT 240 10x3/uL (130-400); RBC 4.71 10x6/uL (4.00-5.40); WBC 6.2 10x3/uL (4.8-10.8)
[2020-07-27 08:42] LABS: CALC OSMOLALITY 278 mosm/kg (275-300); CALCIUM 9.2 mg/dL (8.5-10.1); CARBON DIOXIDE 27.8 mmol/L (21.0-32.0); CHLORIDE - SERUM 103 mmol/L (98-107); CREATININE - SERUM 1.1 mg/dL (0.6-1.3); GLUCOSE 123 mg/dL (74-106); POTASSIUM - SERUM 4.7 mmol/L (3.5-5.1); SODIUM 139 mmol/L (136-145); UREA NITROGEN 12 mg/dL (7-18); eGFR NON AFRICAN AMERICAN 52 mL/min (90-120)
[2020-07-27 08:48] LABS: ALBUMIN 3.3 g/dL (3.4-5.0); ALKALINE PHOSPHATASE 134 U/L (30-120); ALT (SGPT) 18 U/L (10-68); AMYLASE - SERUM 41 U/L (25-115); C-REACTIVE PROTEIN < 0.2 mg/dL (0.0-0.9); LIPASE 108 U/L (73-393); PROTEIN - SERUM 6.5 g/dL (6.4-8.2)
[2020-07-27 09:02] LABS: CREATINE KINASE 48 UL (21-215); TROPONIN-I < 0.017 ng/mL (0.000-0.060)
[2020-07-27] MEDS ORDERED: LOMOTIL 2.5-0.1 EAC1 PO (09:47)
[2020-07-27] MEDS ORDERED: ZOFRAN ODT4 MG/UDTAB PO (09:47)
== END 2020-07-27 10:26 | disposition home or self-care (01) ==
LOC: D.ER 07:48
PROVIDERS: Family Medicine
DX: R11.2 Nausea with vomiting, unspecified (principal); J02.9 Acute pharyngitis, unspecified; G62.9 Polyneuropathy, unspecified; K21.9 Gastro-esophageal reflux disease without esophagitis; E78.5 Hyperlipidemia, unspecified; Z72.0 Tobacco use; R19.7 Diarrhea, unspecified; R05 Cough

== ENCOUNTER 2020-09-09 15:08 | Emergency (ER) | payer MEDICARE ==
[~2020-09-09] VITALS: Ht 156 cm; Wt 63.6 kg
[~2020-09-09 15:08] MED LIST changes: +LOMOTIL 2.5-0.1 EAC1 PO; +ZOFRAN ODT4 MG/UDTAB PO
[2020-09-09 15:12] VITALS: Ht 156 cm; Wt 63.6 kg
[2020-09-09] MEDS ORDERED: KEPPRA750 MG PO (15:16)
[2020-09-09] MEDS ORDERED: HYDROCODON-ACE1 EAC7 PO (15:38)
[2020-09-09 16:13] VITALS: BP 147/71
== END 2020-09-09 16:23 | disposition home or self-care (01) ==
LOC: D.ER 15:08
DX: S42.033A Displaced fracture of lateral end of unspecified clavicle, initial encounter for closed fracture (principal); V89.2XXA Person injured in unspecified motor-vehicle accident, traffic, initial encounter

== ENCOUNTER 2020-11-02 10:25 | Inpatient (IN) | payer MEDICARE ==
[~2020-11-02 10:25] MED LIST changes: +HYDROCODON-ACE1 EAC7 PO
[2020-11-02 14:14] LABS: BASOPHILS 0.1 % (0-2); EOSINOPHILS 0.7 % (0-7); HEMATOCRIT 51.8 % (36.0-48.0); HEMOGLOBIN 17.2 g/dL (12-16); IMMATURE GRANULOCYTES 0.4 % (0-5); LYMPHOCYTE ABS# 1.75 10x3/uL (1.18-3.74); MCH 33.5 pg (26.0-34.0); MCHC 33.2 g/dL (31.0-37.0); MEAN PLATELET VOLUME 9.8 fL (7.4-10.4); NEUTROPHIL ABS# 4.61 10x3/uL (1.56-6.13); NEUTROPHILS 65.8 % (40-80); PLATELET COUNT 232 10x3/uL (130-400); RBC 5.13 10x6/uL (4.00-5.40); RDW 12.7 % (11.5-14.5)
[2020-11-02 14:28] LABS: ALBUMIN 3.9 g/dL (3.4-5.0); ALT (SGPT) 29 U/L (10-68); BILIRUBIN - TOTAL 0.76 mg/dL (0.2-1.3); CALC OSMOLALITY 274 mosm/kg (275-300); CALCIUM 9.3 mg/dL (8.5-10.1); CARBON DIOXIDE 28.2 mmol/L (21.0-32.0); CHLORIDE - SERUM 98 mmol/L (98-107); CREATININE - SERUM 0.7 mg/dL (0.6-1.3); GLUCOSE 98 mg/dL (74-106); PROTEIN - SERUM 7.5 g/dL (6.4-8.2); SODIUM 137 mmol/L (136-145); UREA NITROGEN 14 mg/dL (7-18); eGFR NON AFRICAN AMERICAN 88 mL/min (90-120)
[2020-11-02 14:29] LABS: ALKALINE PHOSPHATASE 140 U/L (30-120); POTASSIUM - SERUM 4.4 mmol/L (3.5-5.1)
[2020-11-02 14:46] LABS: UDS - AMPHET NEGATIVE QUAL (NEGATIVE); UDS - BARB NEGATIVE QUAL (NEGATIVE); UDS - BENZO POSITIVE QUAL (NEGATIVE); UDS - COCAINE NEGATIVE QUAL (NEGATIVE); UDS - OPIATE NEGATIVE QUAL (NEGATIVE); UDS - PCP NEGATIVE QUAL (NEGATIVE); UDS - THC POSITIVE QUAL (NEGATIVE)
[2020-11-02 15:02] LABS: BILIRUBIN NEGATIVE (NEGATIVE); KETONE 1+ mg/dL (< 1+); NITRITE NEGATIVE (NEGATIVE); PH 7.5 (5.0-8.0); SQUAMOUS EPITHELIAL 3 HPF (0-4); UROBILINOGEN NORMAL mg/dL (< 2); WHITE CELLS - URINE 48 HPF (0-4)
[2020-11-02 17:00] LABS: SARS-CoV-2 ANTIGEN NEGATIVE- SARS-COV-2 (NEGATIVE)
[2020-11-02 20:00] VITALS: BP 107/80
--- NOTE | 2020-11-02 21:08 | NUR ---
NEW ADMIT TO DOCTOR RALPH FROM [facility] ED RELATED TO STATEMENTS OF S/I. PATIENT WAS IN [facility] ED FOR AN ANXIETY ATTACK. UPON TIME TO DISCHARGE SHE STATED TO STAFF SHE WOULD KILL HERSELF IF SENT HOME. PATINET WAS RECEIVED VIA WHEELCHAIR WITH ED STAFF AT HER SIDE. CALM AND COOPERATIVE UPON ADMIT AND IN GOOD SPIRITS. WRITTEN ADMIT CONSENT RECEIVED. CODE STATUS OF FULL CODE RECEIVED. SECURITY CODE OF 8761 GIVEN. PATIENT IS SITTING CALMLY IN HALLWAY OUTSIDE OF NURSES STATION WITH PEERS AT HER SIDE. PATIENT DENIES ANY THOUGHTS OF SELF HARM AND STATES HER FAMILY IS THE REASON SHE WOULDN'T HURT HERSELF.
--- NOTE | 2020-11-02 21:40 | NUR ---
PT IS IN THE HALLWAY VISITING WITH PEERS. RELATES THAT SHE IS ANXIOUS ABOUT GOING TO BED WITHOUT HER NIGHTIME MEDICATIONS. ADMINISTERED PRN ATIVAN PO 0.5 MG. EDUCATED ON MEDICATIONS AND UNIT POLICIES. MONITOR FOR SAFETY.
--- NOTE | 2020-11-02 22:15 | NUR ---
PT RESTING IN BED WITH EYES OPEN. NO SIGNS OF DISTRESS NOTED. MONITOR FOR SAFETY.
[2020-11-02 22:40] VITALS: BP 107/80; BMI 26.2
[2020-11-03 07:52] LABS: CHOL - HDL RATIO 2.6 ratio (2.3-4.1); CHOLESTEROL, TOTAL 97 mg/dL (0-200); HDL CHOLESTEROL 37 mg/dL (32-96); LDL CHOLESTEROL 51 mg/dL (0-100); LDL-HDL RATIO 1.4 ratio (1.5-3.5); THYROID STIMULATING HORMONE 1.95 uIU/mL (0.36-3.74); TRIGLYCERIDE 49 mg/dL (30-200)
[2020-11-03 08:00] VITALS: BP 102/57
[2020-11-03 09:36] VITALS: Wt 63.6 kg
--- NOTE | 2020-11-03 16:57 | NUR ---
PT DENIES SI AT THIS TIME. PT IS AWKAKE AND ALERT X 4. CALM AND COOPERATIVE WITH ASSESSMENT. NO BEHAVIORS NOTED AT THIS TIME. PT DENIES SELF HARM AT THSI TIME. WILL CPOC.
--- NOTE | 2020-11-03 19:44 | NUR ---
RECEIVED IN HALLWAY OUTSIDE OF NURSES STATION. SITTING QUIETLY READING A BOOK. CALM AND COOPERATIVE WITH CARE AND ASSESSMENTS. NO STATEMENTS OF SELF HARM VOICED. ENCOURAGE TO EXPRESS NEEDS. CONTINUES TO SIT QUIETLY READING. CONTINUE PLAN OF CARE.
[2020-11-03 20:00] VITALS: BP 138/66
--- NOTE | 2020-11-03 23:16 | NUR ---
[id number] TO BE VERY RESTLESS. ATTEMPTING TO STAND WITHOUT ASSIST. SHOBHA ALARM SOUNDING. YELLING OUT AT TIMES. VERY CONFUSED.
[2020-11-04 08:00] VITALS: BP 108/55
[2020-11-04 08:14] LABS: RAPID PLASMA REAGIN Non Reactive (Non Reactive)
--- NOTE | 2020-11-04 15:35 | PSY ---
PATIENT NAME:PETE GAUTHIER MEDICAL RECORD: [id number] : 54 LOCATION:[facility] ADMISSION DATE: 11/02/20 ACCOUNT: [id number] PSYCHIATRIC EVALUATION DATE OF EVALUATION: 11/03/20 IDENTIFYING DATA: The patient is 70 years old and she is admitted to the hospital on a voluntary basis. CHIEF COMPLAINT: Anxiety. HISTORY OF PRESENT ILLNESS: The patient initially presented to the Emergency Room yesterday with a complaint of dizziness, headache and anxiety. She was presenting with a high degree of distress over these symptoms, which were addressed and when she was about to be sent home from the Emergency Department, she indicated that she was having suicidal thoughts. She was subsequently admitted to the behavioral unit where she has been a patient before. However, prior to coming here a urine drug screen was obtained and she did not have any alcohol on board, but she did have both benzodiazepine and marijuana present in her urine. Today, she tells me that this has been a misunderstanding that this is not the situation and that she just needs to be given something for anxiety and then discharged. She has no psychotic symptoms. She does endorse some depressive symptoms. PAST MEDICAL HISTORY: Significant for hypothyroidism, dyslipidemia, gastroesophageal reflux disease, a reported history of Lyme disease and fibromyalgia, and a poorly described history of seizures or epilepsy. PAST PSYCHIATRIC HISTORY: Significant for chronic alcoholism for which she has been hospitalized many times related to suicidal statements or even attempts. The last time she was hospitalized was in April 2020 or at least that is the last time I know of. She had been in this facility multiple times, all for mood symptoms with suicidal thoughts. She does have a history of extensive outpatient treatment. She tells me that she has been diagnosed with bipolar disorder and is on lithium. FAMILY HISTORY: Unknown. ALLERGIES: No known drug allergies. CURRENT MEDICATIONS: Include acyclovir, nicotine transdermal patch, Crestor, Sinequan, Haldol, Keppra, lithium, Paxil, trazodone. SOCIAL HISTORY: The patient is . She has adult children and grandchildren. She denies history of substance abuse or alcohol use, but that is incorrect. She now tells me she is drinking an occasional glass of wine, but certainly not abusing alcohol. She has an elderly mother, I am not sure if the woman is or has gone to a facility, but Pete is living in her condominium and now a nephew has moved in and Pete says that the nephew is causing her a great deal of distress because he is 40 years old, unemployed, drinks and uses drugs excessively and invites people with similar inclinations into the house to do the same thing. MENTAL STATUS EXAMINATION: The patient is awake, alert and oriented to person and place and somewhat to time and situation. She is only mildly mistaken about the date. Her mood is depressed. Her affect is generally appropriate. Thought processes are circumstantial when she is questioned about things that make her uncomfortable, otherwise the thought processes are logical and goal directed. She is denying that she would seek to harm herself or others. She denies psychotic symptoms. ASSESSMENT: AXIS I: Major depression, moderate severity without psychotic features, polysubstance abuse. AXIS II: Cluster B personality traits. AXIS III: Hypothyroidism. AXIS IV: Moderate stressors. AXIS V: Global assessment of functioning is 40. PLAN: At this time, the patient is admitted to the hospital secondary to suicidal statements. She will be evaluated and treated with antidepressant medications. Her long-term prognosis is guarded. TRANSINT:[id number] Voice Confirmation ID: [id number] DOCUMENT ID: [id number] SUBHA RALPH MD at 1535 CC: [id number] DICTATION DATE: 11/03/20 1609 CANARY BREEDER: 11/03/20 1633 ADM IN [facility] [address] [place] [address]
--- NOTE | 2020-11-04 17:51 | NUR ---
Rec'd this am walking in the hallway. She is med compliant and took her meds whole. She is a/o to person, place, time, and situation. She is directable. She denies any suicidal ideation or self harm. She sat with the group but worked on her own activity.
[2020-11-04 20:00] VITALS: BP 124/71
--- NOTE | 2020-11-05 03:31 | NUR ---
B)RECEIVED PATIENT SITTING OUTSIDE THE NURSE'S STATION READING A BOOK. WITHDRAWN. ASKED IF SHE COULD GO TO HER ROOM DUE TO INCREASED STIMULI ON THE UNIT. ORIENTED X4. RELATED "I HOPE YOU HAVE SOMETHING FOR MY PAIN." RATED 10/10. I)ADMINISTER MEDS AND MONITOR COMPLIANCE. OBTAIN VERBAL NO HARM CONTRACT, R)MED COMPLIANT. CONTRACTS VERBALLY FOR NO SELF HARM. DENIES SI. P)CONTINUE POC AND PROVIDE SAFE ENVIRONMENT.
[2020-11-05 08:42] VITALS: BP 106/56
--- NOTE | 2020-11-05 14:48 | PN ---
PATIENT:PETE GAUTHIER MEDICAL RECORD: [id number] LOCATION:[facility] ADMISSION DATE: 11/02/20 PROGRESS NOTE DATE OF SERVICE: 11/04/2020 SUBJECTIVE: The patient's case was discussed with staff. She has no new complaint. OBJECTIVE: The patient is fully oriented and has a euthymic mood. She denies that she would seek to harm herself or others. She is not showing any signs subjectively or objectively of alcohol withdrawal. ASSESSMENT: No change in diagnoses. PLAN: Current medicines have been reviewed and will be maintained. She will be transitioned out of the hospital soon. TRANSINT:[id number] Voice Confirmation ID: [id number] DOCUMENT ID: [id number] SUBHA RALPH MD at 1448 CC: [id number] DICTATION DATE: 11/04/20 1635 SYSTEMS CONSULTANT: 11/04/20 1813 ADM IN [place] [address] [place] [address]
--- NOTE | 2020-11-05 16:04 | NUR ---
Patient request a "pain med" for her back. Rating at a "10"
--- NOTE | 2020-11-05 17:56 | NUR ---
Reassessment of effectiveness of pain medication. she states "it still hurts".
--- NOTE | 2020-11-05 17:58 | NUR ---
Patient rec'd up in the hallway, ambulating and socializing. She is a/o times 3 to person, place, and situation. She is med compliant and takes her meds whole. She has sat in the group today and worked crossword puzzles. She has been very quiet and reserved today. She is calm and cooperative. She denies any suicidal ideation or self harm today.
[2020-11-05 20:00] VITALS: BP 103/42
--- NOTE | 2020-11-06 01:49 | NUR ---
B)RECEIVED PATIENT LYING ON HER BED READING A BOOK. ORIENTED X4, WITHDRAWN. APPROPRIATE WHEN APPROACHED BY STAFF HOWEVER AVOIDS PEERS. CALM AND COOPERATIVE. I)ADMINISTER MEDS AND MONITOR COMPLIANCE. OBTAIN VERBAL CONTRACT FOR NO SELF HARM. R)MED COMPLIANT. CONTRACTS VERBALLY FOR NO SELF HARM. P)CONTINUE POC AND PROVIDE SAFE ENVIRONMENT.
[2020-11-06 08:00] VITALS: BP 92/56
--- NOTE | 2020-11-06 08:00 | NUR ---
PT SITTING AT TABLE AT THIS TIME. ALERT TO PERSON, PLACE, TIME AND SITUATION. COMPLIANT WITH MEDS, VITALS AND ASSESSMENTS. PT IS CALM AND COOPERATIVE. AMBULATES. CAN MAKE NEEDS KNOWN. DENIES SI. WILL CONT PLAN OF CARE.
--- NOTE | 2020-11-06 09:20 | NUR ---
PT D/C WITH BROTHER AT THIS TIME. PT TO F/U UP WITH DR. VARGAS AFTER D/C PAPERWORK GIVEN TO HER AT THIS TIME. NURSE WALKED PT TO DOOR AT THIS TIME. ALL PERSONAL BELONGINGS SENT WITH PT AT THIS TIME. PT SIGNED FOR ALL BELONINGS. EDUCATED ON MEDICATION AND FOLLOW UP APPTS. SHE VERBALIZIED UNDERSTANDING.
--- NOTE | 2020-11-06 13:38 | PN ---
PATIENT:PETE GAUTHIER MEDICAL RECORD: [id number] LOCATION:[facility] ADMISSION DATE: 11/02/20 PROGRESS NOTE DATE OF SERVICE: 11/05/2020 SUBJECTIVE: The patient's case was discussed with staff. She has no new complaint. OBJECTIVE: The patient denies intent to harm herself or others. Her mood is euthymic. ASSESSMENT: No change in diagnosis. PLAN: The patient will be transitioned out of the hospital tomorrow morning, assuming this level of improvement continues. Her long-term prognosis is guarded. TRANSINT:[id number] Voice Confirmation ID: [id number] DOCUMENT ID: [id number] SUBHA RALPH MD at 1338 CC: [id number] DICTATION DATE: 11/05/201705 TOBACCO STEMMER: 11/05/201950 DIS IN 11/06/20 [id number] [place] [address]
--- NOTE | 2020-11-07 12:43 | DS ---
PATIENT:PETE GAUTHIER :54 MEDICAL RECORD: [id number] DISCHARGE SUMMARY ADMISSION DATE: 11/02/20 DISCHARGE DATE: 11/06/20 IDENTIFYING DATA: The patient is 70 years old. She was admitted to the hospital on a voluntary basis. CHIEF COMPLAINT: Anxiety. HISTORY OF PRESENT ILLNESS: The patient had presented to the Emergency Department complaining of dizziness, headache, and anxiety. She initially denied that she was suicidal, but when she was told she was going to be sent home with outpatient followup, she said she was having suicidal thoughts. She endorses a lot of vegetative depressive symptoms and was admitted to the hospital and continued on her home medications. HOSPITAL COURSE: Within a few hours of being admitted to the hospital, the patient's symptoms improved. She was maintained on home medications for 3 days while being monitored for suicidal thoughts and was subsequently discharged. DISCHARGE DIAGNOSES: AXIS I: Major depression, moderate severity without psychotic features. Alcohol abuse. AXIS II: Cluster B personality traits. AXIS III: Hypothyroidism. AXIS 1V: Moderate stressors. AXIS V: Global assessment of functioning is 45. PLAN: The patient was discharged home. She is to have followup with her outpatient psychiatrist. Long-term prognosis is guarded. TRANSINT:[id number] Voice Confirmation ID: [id number] DOCUMENT ID: [id number] SUBHA RALPH MD at 1243 CC: [id number] DICTATION DATE: 11/06/20 1422 MANAGER OF PATIENT: 11/06/20 2210 DIS IN 11/06/20 [place] [address]
== END 2020-11-06 09:00 | disposition home or self-care (01) | DRG 885 ==
LOC: D.ER 10:25 → D.EDHOLD 18:49 → D.PSYCH 18:49
PROVIDERS: Emergency Medicine; ADMIT Psychiatry & Neurology Psychiatry; ATTEND Psychiatry & Neurology Psychiatry
DX: F33.2 Major depressive disorder, recurrent severe without psychotic features (principal); R45.851 Suicidal ideations; N39.0 Urinary tract infection, site not specified; E03.9 Hypothyroidism, unspecified; G40.909 Epilepsy, unspecified, not intractable, without status epilepticus; F17.200 Nicotine dependence, unspecified, uncomplicated; Z72.89 Other problems related to lifestyle